=== PATIENT | female | born 1970 | race Caucasian/White ===

== ENCOUNTER → 2017-12-24 14:50 | Outpatient (CLI) | payer OTHER, SELFPAY ==
--- NOTE | 2017-12-24 14:53 | BI_ITS ---
MAMMOGRAPHY - BILATERAL SCREENING REASON FOR EXAM: Female, 47 years old. Routine annual screening examination. PERTINENT HISTORY: Non-contributory. TECHNIQUE: Digital bilateral breast zay (3D mammographic acquisition) in the CC and MLO projections. 2-D mediolateral oblique (MLO) and craniocaudad (CC) views of both breasts were obtained. CAD: Full Field Digital Mammography with Computer Added Detection was performed. COMPARISON: Comparison is made with prior ocular examination dated December 18, 2016 FINDINGS: Breast Composition: The breasts are heterogeneously dense, which may obscure small masses. There are no dominant masses or suspicious calcifications. A tissue clip marker is seen in the deep slightly inferior portion of the left breast. No other significant abnormalities are identified. There has been no significant change since the prior study. BI/SCREENING MAMM (CAD), BILAT IMPRESSION: Stable bilateral screening mammogram. Yearly follow-up mammogram recommended. (A) ASSESSMENT CATEGORY: BIRADS Category 2: Benign. A letter regarding these results will be sent to the patient by the facility within 30 days. Approximately 10% of breast cancers are not detected by mammography. A normal mammogram should not delay biopsy of a clinically suspicious abnormality. [id number] Electronically Signed: Baldev Bianchi MD at 15:35 EDT Tel [phone], Service support ,
== END ==
PROVIDERS: Family Provider Family Medicine; PCP Family Medicine; Visit Provider Family Medicine
DX: Z12.31 Encounter for screening mammogram for malignant neoplasm of breast (principal)
CPT/HCPCS: 77063; 77067

== ENCOUNTER → 2017-12-28 08:25 | Outpatient (CLI) | payer OTHER, SELFPAY ==
--- OUTSIDE RECORDS SUMMARY | 2017-12-29 10:01 | XMS RPT_ITS ---
:1970 Author Organization OHIP Care Team Providers Name Role Phone DOCTOR, OUT OF TOWN Attending Unavailable Nadege Gray Primary Care [facility] Employee Attending Unavailable DOCTOR, OUT OF TOWN Attending Unavailable Beba Sidhu Attending Unavailable Beba Sidhu Referring Unavailable Beba Sidhu Primary Care Unavailable Mikala Arboleda Attending Unavailable Beba Sidhu Referring Unavailable Mikala Arboleda Attending Unavailable Mikala Arboleda Referring Unavailable PROBLEMS PROBLEMS DATE TYPE CONDITION / CODE ATTENDING STATUS SOURCE 12/29/2017 Unknown Z12.4 - Mikala Arboleda Active [place] Encounter for Community screening for Hospital malignant Repository neoplasm of cervix / Z12.4(ICD-10) 12/24/2017 Unknown Z12.31 - Beba Sidhu Active [place] Encounter for Community screening Hospital mammogram for Repository malignant neoplasm of breast / Z12.31(ICD-10) PROCEDURES PROCEDURES No Procedure Records FoundRESULTS RESULTS 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 [place] [address] [phone] VISITDate of Service: 12/28/17MR#: [id number] Acct: [id number]: CHESTERLAKISHATOMÁS LONDONO Jaky Rep #: [id number]: 1970 Provider: VALDEZ Whaley/Sex: 47/F 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 annual examIs patient in pain?: NoAllergiesNo Known Allergies Allergy (Unverified 12/28/17 08:19)Medicationsdesogestrel-e.estradiol 0.15 mg-0.02 mg(21)/e.estrad 0.01 mg(5 ) tablet 1 tab PO .COMPLEX #84tab 12/28/17 [Rx Confirmed 12/28/17]Is last menstrual period known: NoPatient : NoBreastfeeding: NoPFSHSurgical HistoryHistory of (Acute)Family HistoryFather Myocardial infarctionSocial Historyadopted: Nocurrent occupational status: employedcurrent occupation: [employer] [address] [employer]current occupational exposures/hazards: NoSmoking Status: Never smokersecond hand exposure: Noalcohol intake: current alcohol intake frequency: holidays/ special occasions onlysubstance use type: does not usewhat type of physical activity do you participate in: walkingfrequency: 3-4 times per weekseatbelt use: alwaysdo you feel safe at home: Yesadditional social history: Spouse-GregPregancy HistoryGravida 1 Elective abortionsHx Para 1 Spontaneous abortionsPast PregnanciesDel. DatName GA/WeeksOutcome [facility]Infant GLabor LgAnesthesDel LocaProviderFOBe en wa tnUnknowcarole MadysonDelivery Date: On 12/28/17 @ 09:00 Manju Darling Born in 1998HPIEncounter for routine gynecological examination:Details: TOMÁS COLEMAN is a 47 year old who presents for annual exam. No concerns.Continuous cycling with OCP-wishes to continueLast PAP: unsureHistory of abnormal PAP: noLast mammogram: History of abnormal mammogram: negative biopsyROSConstConstitutional: Denies fatigue, weight gain or weight lossCardioCard: Denies chest painRespResp: Denies cough or shortness of breath with activityGIGI: Denies abdominal pain, constipation, change in stools, vomiting or bloatingGUGU: Reports as per HPI;denies urinary frequency, pelvic pain, urinary urgency, vaginal discharge, vaginal itching,urinary incontinence or difficulty urinatingExamConstGeneral: cooperative, healthy appearing, no acute distress, well developedOrientation: alert, oriented to person, oriented to placeHENMTHead: normal to inspectionNeckNeck: normal visual inspectionThyroid: thyroid normalLymphatic: no lymphadenopathy notedChestBreast inspection: normal inspection of the breasts, normal inspection of the axillaeBreast palpation: normal palpation of the breasts, normal palpation of the axillae, no axillarylymphadenopathyRespEffort AND Inspection: normal respiratory effortGIPalpation: soft, nontender, no massesRectal Exam: mass, deferredGUExternal Female Exam: normal external appearance, normal appearance of the urethraUrethra: normal appearance of the urethra, normal palpationSpeculum Exam - Vagina: normal appearance of the vagina, normal vaginal dischargeSpeculum Exam - Cervix: normal appearance of the cervix, other (pap collected)Bimanual Exam- Vagina AND Uterus: normal bimanual exam, uterine size normal, uterine shapenormal, uterus non-tenderBimanual Exam- Adnexa, other: normal adnexae, no adnexal masses, adnexae non-tender, pelvicsupport normalPelvic Support: normalNeuroGeneral: alert, oriented d6InriyBtnsqx: normal affectAssessment AND Plan1. Encounter for gynecological examination without abnormal finding Z01.419PlanCompleted breast and pelvic examReviewed diet and exercisePap thin prep pap with HPVMammogram recentContraception OCP continuous cyclingRTO 1 year, prn with Marissa Arboleda CNPPlan DetailOther OrdersOrders:Other MedicationsNew:CodingLevel of Care CodeOff vis,est,prev 40-64yrsDiagnosesEncounter for gynecological examination without abnormal finding Z01.419Gynecological examination findings: abnormal findings XYQXSX27/02/18 0924 <Electronically signed by Mikala Arboleda UX INTERACTION DESIGNER-C>Date Mikala Arboleda UX INTERACTION DESIGNER-CCosigner Signature: Date (if applicable)CC: SCREENING MAMM (CAD), Observed: 12/24/2017 Status: F Source: [facility] 2:53 PM [facility] REPOSITORY [facility]Im[facility] [id number] [place], [place] [address]XMZLLMIKZ MAMM (CAD), BILATMR#: [id number] Acct: [id number]: TOMÁS KELLEY Rep #: [id number]: 1970 F 47 From: Baldev Bianchi MDPCP: Beba Sidhu MD Status: REG CLIStudy: SCREENING MAMM (CAD) , BIL Date of Exam: 12/24/17Exam# [id number] Ordering Dr: Beba Sidhu MDMAMMOGRAPHY - BILATERAL SCREENINGREASON FOR EXAM: Female, 47 years old. Routine annual screeningexamination.PERTINENT HISTORY: Non-contributory.TECHNIQUE: Digital bilateral breast zay (3D mammographic acquisition) inthe CC and MLO projections. 2-D mediolateral oblique (MLO) and craniocaudad(CC) views of both breasts were obtained. CAD: Full Field DigitalMammography with Computer Added Detection was performed.COMPARISON: Comparison is made with prior ocular examination dated 2016 FINDINGS:Breast Composition: The breasts are heterogeneously dense, which mayobscure small masses.There are no dominant masses or suspicious calcifications. A tissue clipmarker is seen in the deep slightly inferior portion of the left breast.No other significant abnormalities are identified. There has been nosignificant change since the prior study. ORDER #: [id number] BI/SCREENING MAMM ( CAD), BILATIMPRESSION:Stable bilateral screening mammogram. Yearly follow-up mammogramrecommended. (A) ASSESSMENT CATEGORY:BIRADS Category 2: Benign. A letter regarding these results will be sentto the patient by the facility within 30 days.Approximately 10% of breast cancers are not detected by mammography. Anormal mammogram should not delay biopsy of a clinically suspiciousabnormality.[id number] Signed:Baldev Bianchi MD at 15:35 [facility] [phone], Service support , HT: Beba Sidhu MD Drawing In Machine Tender:Signed PROGRESS Observed: 09/11/2017 Status: COMPLETED Source: [place] 8:27 AM [facility] REPOSITORY HNO ID: [id number]: Donnie Clarke) Solitario: (none)Author Type: Nurse PractitionerType: Progress NotesFiled: 09/11/2017 8:51 AMNote Text:SubjectiveHPIHPI Tomás Kelley is a 47 year old female who presents today for CC ofcough, headache, sinus pressure. This started over 5 days. Has tried otcmedications. Symptoms have remained unchanged. Risk factors sickexposures at home. Denies possibility of being . nonsmoker.Patient presents with: cough, runny nose, CONCEPCION and sinus pressure: x 5 daysPAST MEDICAL HISTORYDiagnosis Date- Irritable bowel syndrome 08/11/2006- Palpitations 11/19/2006- PMH - PAST MEDICAL HISTORY OF 03/2006 irregular heart beat, on Atenolol for this- Vertigo, benign positional June 2014PAST SURGICAL HISTORYProcedure Laterality Date- BREAST BIOPSY W/STEREOTACTIC GUIDANCE Left 01/05/2016- DELIVERY ONLY 02-24-1999 C- section, low cervical- LASIK Bilateral 2006- PAST SURGICAL HISTORY OF WISDOM TEETH EXTRACTIONALLERGIES Review of patient's allergies indicates no known allergies.MEDICATIONSDesogestrel-Ethinyl Estradiol (MIRCETTE, 28,) 0.15-0.02 mgx21 /0.01 mg x 5per tablet Take 1 tablet by mouth daily to take active pills continuouslynortriptyline (PAMELOR) 10 mg capsule Take 1-3 capsules by mouth daily atbedtime.atenolol (TENORMIN) 25 mg tablet Take 1 tablet by mouth as needed.FAMILY HISTORYProblem Relation Age of Onset- Heart Father [place]- IN 30'S- Stroke Maternal Grandmother- Diabetes Maternal Grandmother- Hypertension Maternal Aunt- Cancer Maternal Uncle LungSocial HistorySubstance Use Topics- Smoking status: Never Smoker- Smokeless tobacco: Never Used- Alcohol use Yes Comment: SociallyReview of SystemsConstitutional: Negative for chills, fever and weight loss.HENT: Positive for congestion. Negative for ear pain, nosebleeds and sorethroat.Respiratory: Positive for cough. Negative for shortness of breath andwheezing.Musculoskeletal: Negative for neck pain.Skin: Negative for itching and rash.ObjectiveBlood pressure 108/80, pulse 88, temperature 36.8 ?C (98.3 ?F),temperature source Tympanic, resp. rate 18, weight 59.1 kg (130 lb 6.4oz), SpO2 98 %.Physical ExamConstitutional: She is oriented to person, place, and time andwell-developed, well-nourished, and in no distress. Non-toxic appearance.She does not have a sickly appearance. No distress.HENT: Head: Normocephalic and atraumatic.Right Ear: Hearing, tympanic membrane, external ear and ear canal normal.Left Ear: Hearing, tympanic membrane, external ear and ear canal normal.Nose: Nose normal.Mouth/Throat: Uvula is midline, oropharynx is clear and moist and mucousmembranes are normal.Eyes: Conjunctivae and lids are normal. Pupils are equal, round, andreactive to light. Right eye exhibits no discharge. Left eye exhibits nodischarge. No scleral icterus.Neck: Trachea normal and normal range of motion. Neck supple.Cardiovascular: Normal rate, regular rhythm and normal heart sounds.Pulmonary/Chest: Effort normal and breath sounds normal.Lymphadenopathy : She has no cervical adenopathy.Neurological: She is alert and oriented to person, place, and time.Skin: No rash noted. She is not diaphoretic. ASSESSMENT/PLAN:1. Sinobronchitis - ICD9: 473.9, 490, ICD10: J32.9, J40- watch/wait for 2-3 days, if symptoms no better/worse fill/takeantibiotic- Supportive care with plenty of fluids, rest, and analgesia prn.- Follow up in 3-5 days if symptoms persist or worsen.- AMOXICILLIN 875 MG-POTASSIUM CLAVULANATE 125 MG TABLET- BENZONATATE 100 MG CAPSULEPrescription instructions reviewed with patient as applicable. Patientadvised if symptoms do not improve or if symptoms worsen sooner, tocontact the office for further evaluation by their primary care physician. Potential red flag symptoms discussed with the patient. Reviewedappropriate action plan to take if red flag symptoms occur. Patientagreeable to treatment plan.Donnie Clrak CNP CNOV Observed: 09/11/2017 Status: COMPLETED Source: [place] 8:15 AM [facility] REPOSITORY Office Visit (WSTR) ---------TOMÁS KELLEY ([id number]) 1970 FDate Time Provider Department09/11/17 8:15 AM DONNIE CLARK) WSTR During your visit today, we recorded the following information about you: Temperature Pulse Respiration Blood pressure 98.3 degrees 88/minute 18/minute 108/80 Weight 59.1 kgJonathan Eduardo, WINDOW TREATMENT INSTALLER 09/11/2017 8:51 AM SignedSubjectiveHPIHPI Tomás Kelley is a 47 year old female who presents today for CC of cough,headache, sinus pressure. This started over 5 days. Has tried otcmedications. Symptoms have remained unchanged. Risk factors sick exposures athome. Denies possibility of being . nonsmoker.Patient presents with:cough, runny nose, CONCEPCION and sinus pressure: x 5 daysPAST MEDICAL HISTORYDiagnosis Date- Irritable bowel syndrome 08/11/2006- Palpitations 11/19/2006- PMH - PAST MEDICAL HISTORY OF 03/2006 irregular heart beat, on Atenolol for this- Vertigo, benign positional June 2014PAST SURGICAL HISTORYProcedure Laterality Date- BREAST BIOPSY W/STEREOTACTIC GUIDANCE Left 01/05/2016- DELIVERY ONLY 02-25-2000 C- section, low cervical- LASIK Bilateral 2006- PAST SURGICAL HISTORY OF WISDOM TEETH EXTRACTIONALLERGIES Review of patient's allergies indicates no known allergies.MEDICATIONSDesogestrel-Ethinyl Estradiol (MIRCETTE, 28,) 0.15-0.02 mgx21 /0.01 mg x 5 pertablet Take 1 tablet by mouth daily to take active pills continuouslynortriptyline (PAMELOR) 10 mg capsule Take 1-3 capsules by mouth daily atbedtime.atenolol (TENORMIN) 25 mg tablet Take 1 tablet by mouth as needed.FAMILY HISTORYProblem Relation Age of Onset- Heart Father [place]- IN 30'S- Stroke Maternal Grandmother- Diabetes Maternal Grandmother- Hypertension Maternal Aunt- Cancer Maternal Uncle LungSocial HistorySubstance Use Topics- Smoking status: Never Smoker- Smokeless tobacco: Never Used- Alcohol use Yes Comment: SociallyReview of SystemsConstitutional: Negative for chills, fever and weight loss.HENT: Positive for congestion. Negative for ear pain, nosebleeds and sorethroat.Respiratory: Positive for cough. Negative for shortness of breath and wheezing.Musculoskeletal: Negative for neck pain.Skin: Negative for itching and rash.ObjectiveBlood pressure 108/80, pulse 88, temperature 36.8 ?C (98.3 ?F), temperaturesource Tympanic, resp. rate 18, weight 59.1 kg (130 lb 6.4 oz), SpO2 98 %.Physical ExamConstitutional: She is oriented to person, place, and time and well-developed,well-nourished, and in no distress. Non-toxic appearance. She does not have asickly appearance. No distress.HENT:Head: Normocephalic and atraumatic.Right Ear: Hearing, tympanic membrane, external ear and ear canal normal.Left Ear: Hearing, tympanic membrane, external ear and ear canal normal.Nose: Nose normal.Mouth/ Throat: Uvula is midline, oropharynx is clear and moist and mucousmembranes are normal.Eyes: Conjunctivae and lids are normal. Pupils are equal, round, and reactiveto light. Right eye exhibits no discharge. Left eye exhibits no discharge. Noscleral icterus.Neck: Trachea normal and normal range of motion. Neck supple.Cardiovascular: Normal rate, regular rhythm and normal heart sounds.Pulmonary/Chest: Effort normal and breath sounds normal.Lymphadenopathy: She has no cervical adenopathy.Neurological: She is alert and oriented to person, place, and time.Skin: No rash noted. She is not diaphoretic. ASSESSMENT/PLAN:1. Sinobronchitis - ICD9: 473.9, 490, ICD10: J32.9, J40- watch/ wait for 2-3 days, if symptoms no better/worse fill/take antibiotic- Supportive care with plenty of fluids, rest, and analgesia prn.- Follow up in 3-5 days if symptoms persist or worsen.- AMOXICILLIN 875 MG-POTASSIUM CLAVULANATE 125 MG TABLET- BENZONATATE 100 MG CAPSULEPrescription instructions reviewed with patient as applicable. Patient advisedif symptoms do not improve or if symptoms worsen sooner, to contact the officefor further evaluation by their primary care physician. Potential red flagsymptoms discussed with the patient. Reviewed appropriate action plan to takeif red flag symptoms occur. Patient agreeable to treatment plan.Dorie Farnsworth CNP 09/11/2017 8: 37 AM SignedACUTE BRONCHITIS:You have acute bronchitis. This means the airway passages in your lungs areinflamed. Bronchitis may be caused by viruses or bacteria. Inhaling cigarettesmoke will always make it worse. Exposure to irritating chemicals or secondhand smoke as well as allergies can contribute to bronchitis. Repeat episodesof bronchitis may cause lifelong lung problems.Acute bronchitis is usually treated with rest, fluids, cough medicine, andpossibly antibiotics or inhaled medicine to open up the small airways. It isvery important that you avoid smoke and drink increased amounts of fluids. Acool air vaporizer can help thin bronchial secretions. This makes it easier tocough and clear your chest. If you are a cigarette smoker, consider usingnicotine gum or skin patches to help you withdraw.Recovery from bronchitis is often slow, but you should start feeling betterafter 2-3 days of treatment. Please call your doctor or return here if youhave any of the following symptoms: - Increased fever, chills, or chest pain. - Severe shortness of breath or bloody sputum. - Do not improve after 3 days of proper treatment.Referring Provider: SELF [200]Allergies As of Date: 09/11/2017(No Known Allergies)Date Reviewed: 09/11/2017Reviewed by: Donnie Clark - Fully AssessedReason for Visit: cough, runny nose, CONCEPCION and sinus pressure [Other] Cmt: x 5 daysPrimary Visit Diagnosis: Sinobronchitis [J32.9, J40]Order(s):amoxicillin-clavulanic acid (AUGMENTIN) 875-125 mg per tabletTake 1 tablet by mouth twice daily for 10 days.Disp: 20 tabletRfl: 0 benzonatate ( TESSALON PERLES) 100 mg capsuleTake 2 capsules by mouth three times daily as needed for Cough.Disp: 30 capsuleRfl: 0Prescriptions as of 09/11/2017 Sig: DESOGESTREL-E.ESTRADIOL 0.15 * Take 1 tablet by mouth daily * AMOXICILLIN 875 MG-POTASSIUM * Take 1 tablet by mouth twice * BENZONATATE 100 MG CAPSULE Take 2 capsules by mouth thre* NORTRIPTYLINE 10 MG CAPSULE Take 1- 3 capsules by mouth da* ATENOLOL 25 MG TABLET Take 1 tablet by mouth as nee*Medication notes this encounter NORTRIPTYLINE 10 MG CAPSULE >> Becky Jorge LPN 09/11/2017 8:15 AM >> BECKY JORGE LPN ThuSep 11, 2017 8:15 AM Not Taking ATENOLOL 25 MG TABLET > > Becky Jorge LPN 09/11/2017 8:15 AM >> BECKY JORGE ALLAN ThuSep 11, 2017 8:15 AM Not TakingProblem List As Of Date 09/11/2017 Noted Resolved 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 Cervicalgia [M54.2] INVALID FOR*12/11/2014 PALPITATIONS [R00.2] INVALID FOR* More... Recurrent Low Back Pain [M54.5] INVALID FOR* Routine medical exam [Z00.00] INVALID FOR*01/07/2012 More... Benign paroxysmal positional vertigo [H81.10] INVALID FOR* Other instructions from your clinician: ACUTE BRONCHITIS: You have acute bronchitis. This means the airway passages in your lungs are inflamed. Bronchitis may be caused by viruses or bacteria. Inhaling cigarette smoke will always make it worse. Exposure to irritating chemicals or second hand smoke as well as allergies can contribute to bronchitis. Repeat episodes of bronchitis may cause lifelong lung problems. Acute bronchitis is usually treated with rest, fluids, cough medicine, and possibly antibiotics or inhaled medicine to open up the small airways. It is very important that you avoid smoke and drink increased amounts of fluids. A cool air vaporizer can help thin bronchial secretions. This makes it easier to cough and clear your chest. If you are a cigarette smoker, consider using nicotine gum or skin patches to help you withdraw. Recovery from bronchitis is often slow , but you should start feeling better after 2-3 days of treatment. Please call your doctor or return here if you have any of the following symptoms: - Increased fever, chills, or chest pain. - Severe shortness of breath or bloody sputum. - Do not improve after 3 days of proper treatment.Prescriptions ordered this encounter Disp Refills Start End AMOXICILLIN 875 MG- POTASSIUM CLAVULA* 20 t* 0 09/11/2017 09/21/2017 Class: Print RX Route: ORAL Sig: Take 1 tablet by mouth twice daily for 10 days. BENZONATATE 100 MG CAPSULE 30 c* 0 09/11/2017 Route: ORAL Sig: Take 2 capsules by mouth three times daily as needed for Cough. Status:Closed by DONNIE CLARK CNP on 09/11/17 LIPID PROFILE Collected: 01/01/2017 Status: F Source: [place] 7:45 AM [facility] REPOSITORY TYPE CODE TESTS RESULT OUT OF RANGE REFERENCE UNITS LAB L501.4900 High 200 mg/dL CHOL 206 Result Comment: <200 mg /dL Desirable 200-240 mg/dL Borderline >240 mg/dL High Risk LAB L501.5000 Normal mg/dL TRIG 88 Result Comment: The drugs N-Acetylcysteine and Metamizole may falsely deressthis assay.Serum Triglycerides Reference Interval Normal <150 mg/dL Borderline high 150 - 199 mg/dL High 200 - 499 mg/dL Very High > or = 500 mg/dL LAB L501.6400 Normal mg/dL HDL 72 Result Comment: The drugs N-Acetylcysteine and Metamizole may falsely deressthis assay. Reference Range HDL <40 mg /dL Low HDL Cholesterol HDL >or= 60 mg/dL High HDL Cholesterol LAB L501.6500 Normal 0-130 mg/dL LDL 116 LAB L501.6600 Normal 5-40 mg/dL VLDL 18 Performed By: #### L500.4100, L501.0100 ####[facility] [address] [place], [place], [address] GLUCOSE Collected: 01/01/2017 Status: F Source: [place] 7:45 [facility] REPOSITORY TYPE CODE TESTS RESULT OUT OF RANGE REFERENCE UNITS LAB L501.0100 Normal 70-110 mg/dL GLU 78 Performed By: #### L500.4100, L501.0100 ####[facility] [address] [place], [address] ALLERGIES ALLERGIES DATE TYPE / CODE NAME / CODE REACTION SEVERITY SOURCE 12/28/2017 Drug No Known Unknown [facility] Allergy/416 Allergies/A89308 Hospital 247267(SNOM 0388(RXNORM) Repository ED CT) Drug NO KNOWN [facility] Class/97058 ALLERGIES [address] [place] 1003(SNOMED Repository CT) ENCOUNTERS ENCOUNTERS ADMIT/DISCHARGE ACCOUNT ADMITTING ENCOUNTER LOCATION SOURCE NUMBER CLASS 12/28/[id number] [facility] ing:LABSPEC Repository 12/28/2017/12/29/19 [id number] Ambulatory BMSBuilding:[address] Hospital Repository 12/24/[id number] [facility] ing:OPBI Repository 09/11/2017/09/12/19 [id number] Ambulatory [address] Repository 06/01/[id number] [facility] ing:MASS Repository 04/06/2017 [id number] [facility] ing:MASS Repository 01/01/[id number] [facility] ing:OLS[facility] Repository PAYERS PAYERS ENCOUNTER GUARANTOR PAYER SUBSCRIBER SOURCE 12/28/2017 TOMÁS Lomas Primary TOMÁS A [place][id number] Insurance:AETNAPolicy [place] [address] [address] Number: : [id number] [id number] Repository [address]Evq: (330) Date:7941-90-65LS [phone] () [address], [place] [address]UD: 12/28/2017 Secondary NOT GIVENUNK [place] Insurance:SELF PAY [facility] Number: Effective Repository Date:2017-12-28 12/28/2017 TOMÁS Lomas. Primary TOMÁS A. [place]-[id number] Insurance:AETNAPolfrany [place] [address] [address] Number: : [id number], [place] [id number] Repository [address]Sas: (330) Date:3155-21-63LA [phone] () [place], [place] [address]HV: 12/28/2017 Secondary NOT GIVENUNK [place] Insurance:SELF PAY [facility] Number: Effective Repository Date:2017-08-31 12/24/2017 TOMÁS A Primary TOMÁS A [place] [id number] STAHR Insurance:AETNAPolicy BOLEKDOB: [place] Number: [id number] Hospital [address]Gxf: ([phone]) [id number] Repository [phone] () Date:[id number] [address] SMUA HERBERT [address]MC: 12/24/2017 Secondary NOT GIVENUNK [place] Insurance:SELF PAY [facility] Number: Effective Repository Date:2017-12-08 06/01/2017 Tomás Primary NOT GIVENUNK [place] [id number] Insurance:SELF PAY [place] Number: Effective Repository [id number]: [phone]) Date:2016-09-26 [phone] ()
[2018-01-04 10:14] LABS: HPV APTIMA, High Risk Negative (Negative)
== END ==
PROVIDERS: Visit Provider Nurse Practitioner Women's Health
DX: R25.2 Cramp and spasm (principal)
CPT/HCPCS: 88175; G0145

== ENCOUNTER → 2018-12-31 08:15 | Outpatient (CLI) | payer OTHER, SELFPAY ==
[2017-12-28 08:16] VITALS: BMI 22.8
--- NOTE | 2018-12-31 08:19 | BI_ITS ---
MAMMOGRAPHY - BILATERAL SCREENING REASON FOR EXAM: Female, 48 years old. Routine annual screening examination. PERTINENT HISTORY: Non-contributory. Remote left stereotactic breast biopsy. TECHNIQUE: Digital bilateral breast ivonne (3D mammographic acquisition) in the CC and MLO projections. 2-D mediolateral oblique (MLO) and craniocaudad (CC) views of both breasts were obtained. CAD: Full Field Digital Mammography with Computer Added Detection was performed. COMPARISON: Comparison is made with prior study dated December 24, 2017 and December 18, 2016. FINDINGS: Breast Composition: The breasts are heterogeneously dense, which may obscure small masses. There are no dominant masses or suspicious calcifications. A tissue clip marker is once again seen in the deep slightly inferior central portion of the left breast. No other significant abnormalities are identified. There has been no significant change since the prior study. BI/SCREEN MAMM (CAD) W/IVONNE BILAT IMPRESSION: Stable bilateral screening mammogram. Yearly follow-up mammogram recommended. (A) ASSESSMENT CATEGORY: BIRADS Category 2: Benign. A letter regarding these results will be sent to the patient by the facility within 30 days. Approximately 10% of breast cancers are not detected by mammography. A normal mammogram should not delay biopsy of a clinically suspicious abnormality. [id number] Electronically Signed: Baldev Bianchi, at 9:56 EDT , Service support ,
== END ==
PROVIDERS: Family Provider Family Medicine; PCP Family Medicine; Referring Provider Nurse Practitioner Women's Health; Visit Provider Nurse Practitioner Women's Health
DX: Z12.31 Encounter for screening mammogram for malignant neoplasm of breast (principal)
CPT/HCPCS: 77063; 77067

== ENCOUNTER → 2019-01-04 14:05 | Outpatient (CLI) | payer OTHER, SELFPAY ==
[2018-12-31 08:53] VITALS: BMI 22.8
--- NOTE | 2019-01-04 14:07 | US_ITS ---
STUDY: ULTRASOUND OF THE FEMALE PELVIS - COMPLETE REASON FOR EXAM: Female, 48 years old. Mass TECHNIQUE: Transabdominal and transvaginal ultrasound images of the pelvis were obtained. TECHNICAL QUALITY: Adequate. COMPARISON: None. FINDINGS: The uterus measures 6.5 x 4.4 x 3.4 cm. Normal uterine cervix. The endometrium measures 7 mm in thickness. 3 mm echogenic focus is noted at the posterior aspect of the endometrium, possibly blood products, calcification, or debris, and not optimally characterized. There is no demonstrated myometrial mass. The right ovary is not visualized. The left ovary measures 2.4 x 1.9 x 1.5 cm. There is no left ovarian cyst or ovarian mass. There is no visualized left adnexal mass or complex lesion. There is normal arterial and normal venous vascularity. There is mild fluid in the cul-de-sac. US/Transvaginal Non- IMPRESSION: No acute pelvic pathology identified. 3 mm echogenic focus at the posterior aspect of the endometrium, possibly blood products, calcification, or debris, and not optimally characterized. Correlate clinically. Electronically Signed: Naveed Mills, at 20:18 EDT Tel , Service support ,
--- NOTE | 2019-01-04 14:07 | US_ITS ---
STUDY: ULTRASOUND OF THE FEMALE PELVIS - COMPLETE REASON FOR EXAM: Female, 48 years old. Mass TECHNIQUE: Transabdominal and transvaginal ultrasound images of the pelvis were obtained. TECHNICAL QUALITY: Adequate. COMPARISON: None. FINDINGS: The uterus measures 6.5 x 4.4 x 3.4 cm. Normal uterine cervix. The endometrium measures 7 mm in thickness. 3 mm echogenic focus is noted at the posterior aspect of the endometrium, possibly blood products, calcification, or debris, and not optimally characterized. There is no demonstrated myometrial mass. The right ovary is not visualized. The left ovary measures 2.4 x 1.9 x 1.5 cm. There is no left ovarian cyst or ovarian mass. There is no visualized left adnexal mass or complex lesion. There is normal arterial and normal venous vascularity. There is mild fluid in the cul-de-sac. US/Pelvic (Non ) IMPRESSION: No acute pelvic pathology identified. 3 mm echogenic focus at the posterior aspect of the endometrium, possibly blood products, calcification, or debris, and not optimally characterized. Correlate clinically. Electronically Signed: Naveed Mills, at 20:18 EDT Tel , Service support ,
== END ==
PROVIDERS: Family Provider Family Medicine; PCP Family Medicine; Referring Provider Nurse Practitioner Women's Health; Visit Provider Nurse Practitioner Women's Health
DX: R19.00 Intra-abdominal and pelvic swelling, mass and lump, unspecified site (principal)
CPT/HCPCS: 76830; 76856; 93976

== ENCOUNTER → 2019-08-11 16:19 | Outpatient (CLI) | payer OTHER, SELFPAY ==
[2019-01-18 11:53] VITALS: BMI 22.1
[2019-08-11 17:25] LABS: Absolute Neutrophil Count 3.4 X10^3/uL (2.0-7.7); Basophil# 0.01 X10^3/uL; Basophil% 0.2 % (0-1); Eosinophil# 0.07 X10^3/uL; Eosinophils% 1.1 % (0-5); Hematocrit 39.9 % (37-47); Mean Corp Hgb Conc 32.6 g/dL (32-36); Mean Corpuscular Hgb 29.1 pg (27.0-32.0); Mean Corpuscular Volume 89.5 fL (81-99); Mean Platelet Vol. 10.8 fl (6.2-12.0); Monocyte# 0.36 X10^3/uL; Monocyte% 5.5 % (0-10); NRBC Flagged by Analyzer 0 % (0-5); Neutrophil # 3.44 X10^3/uL (2.7-7.7); Platelet Count 235 K/mm3 (150-450); RBC Distribution Width CV 12.5 % (11.6-14.6); RBC Distribution Width SD 40.9 fl (35.1-43.9); Red Blood Count 4.46 M/mm3 (4.2-5.4); White Blood Count 6.6 K/mm3 (4.4-11.0)
[2019-08-11 18:03] LABS: Thyroid Stim Hormone (TSH) 2.27 uIU/mL (0.358-3.74)
== END ==
PROVIDERS: PCP Family Medicine; Visit Provider Family Medicine
DX: R53.83 Other fatigue (principal)
CPT/HCPCS: 36415; 84443; 85025

== ENCOUNTER → 2020-01-12 08:13 | Outpatient (CLI) | payer OTHER, SELFPAY ==
[2019-01-18 11:53] VITALS: BMI 22.1
--- NOTE | 2020-01-12 08:13 | BI_ITS ---
MAMMOGRAPHY - BILATERAL SCREENING REASON FOR EXAM: Female, 49 years old. Routine annual screening examination. PERTINENT HISTORY: Non-contributory. TECHNIQUE: Digital bilateral breast ivonne (3D mammographic acquisition) in the CC and MLO projections. 2-D mediolateral oblique (MLO) and craniocaudad (CC) views of both breasts were obtained. CAD: Full Field Digital Mammography with Computer Added Detection was performed. COMPARISON: Comparison is made with prior study December 31, 2018 and December 24, 2017. FINDINGS: Breast Composition: The breasts are heterogeneously dense, which may obscure small masses. There are no dominant masses or suspicious calcifications. A tissue clip marker is once again seen in the deep slightly inferior central portion of the left breast. No other significant abnormalities are identified. There has been no significant change since the prior study. BI/SCREEN MAMM (CAD) W/IVONNE BILAT IMPRESSION: Stable bilateral screening mammogram. Yearly follow-up mammogram recommended. (A) ASSESSMENT CATEGORY: BIRADS Category 2: Benign. A letter regarding these results will be sent to the patient by the facility within 30 days. Approximately 10% of breast cancers are not detected by mammography. A normal mammogram should not delay biopsy of a clinically suspicious abnormality. [id number] Electronically Signed: Baldev Bianchi, at 10:02 EDT , Service support ,
== END ==
LOC: OPBI 08:13
PROVIDERS: PCP Family Medicine; Referring Provider Nurse Practitioner Women's Health; Visit Provider Nurse Practitioner Women's Health
DX: Z12.31 Encounter for screening mammogram for malignant neoplasm of breast (principal)
CPT/HCPCS: 77063; 77067

== ENCOUNTER → 2021-01-17 08:13 | Outpatient (CLI) | payer OTHER, SELFPAY ==
[2020-01-12 09:05] VITALS: BMI 22.1
--- NOTE | 2021-01-17 08:14 | BI_ITS ---
MAMMOGRAPHY - BILATERAL SCREENING REASON FOR EXAM: Female, 50 years old. Routine annual screening examination. PERTINENT HISTORY: Non-contributory. Prior left stereotactic breast biopsy. TECHNIQUE: Digital bilateral breast ivonne (3D mammographic acquisition) in the CC and MLO projections. 2-D mediolateral oblique (MLO) and craniocaudad (CC) views of both breasts were obtained. CAD: Full Field Digital Mammography with Computer Added Detection was performed. COMPARISON: Comparison is made with prior study dated 01/12/2020 and 12/31/2018. FINDINGS: Breast Composition: The breasts are heterogeneously dense, which may obscure small masses. There are no dominant masses or suspicious calcifications. A tissue clip marker is once again seen in the deep slightly inferior central aspect of the left breast. No other significant abnormalities are identified. There has been no significant change since the prior study. BI/SCRN MAMM (CAD)W/IVONNE BILAT IMPRESSION: Stable bilateral screening mammogram. Yearly follow-up mammogram recommended. (A) ASSESSMENT CATEGORY: BIRADS Category 2: Benign. A letter regarding these results will be sent to the patient by the facility within 30 days. Approximately 10% of breast cancers are not detected by mammography. A normal mammogram should not delay biopsy of a clinically suspicious abnormality. [id number] Electronically Signed: Baldev Bianchi MD at 9:43 EDT , Service support ,
== END ==
PROVIDERS: PCP Family Medicine; Referring Provider Nurse Practitioner Women's Health; Visit Provider Nurse Practitioner Women's Health
DX: Z12.31 Encounter for screening mammogram for malignant neoplasm of breast (principal)
CPT/HCPCS: 77063; 77067

== ENCOUNTER 2021-12-06 05:49 | Day surgery (SDC) | payer OTHER, SELFPAY ==
[2021-12-06] VITALS (10 sets, daily range): BP systolic 80–120; BP diastolic 52–87; PULSE 72–87; RESP 16; TEMP 36.3–37.1; O2SAT 99–100; BMI 21.4
--- NOTE | 2021-12-06 06:03 | PCM.HP.STD ---
HPI - General HPI Narrative TOMÁS KELLEY, is a 51 F who presents for screening colonoscopy today. She enjoys good health. She has no particular concerns. No abdominal pain bright red blood per rectum or melena. She has had a previous colonoscopy but albeit 20 years ago. [facility] Medical History Benign positional vertigo Home Medications NK 12/03/21 [History Last Taken Unknown] Allergy/AdvReac Type Severity Reaction Status Date / Time No Known Allergies Allergy Verified 12/03/21 10:49 Family History Father Myocardial infarction Surgical History History of Social History adopted: No current occupational status: employed current occupation: [employer] current occupational exposures/hazards: No Smoking Status: Never smoker second hand exposure: No alcohol intake: current alcohol intake frequency: holidays/special occasions only substance use type: does not use what type of physical activity do you participate in: walking frequency: 3-4 times per week seatbelt use: always do you feel safe at home: Yes additional social history: Spouse-Anand ROS Constitutional Constitutional: Reports systems reviewed and no addt'l complaints, except as documented Cardiovascular Cardiovascular: Denies chest pain Respiratory/Chest Respiratory/Chest: Denies shortness of breath at rest Gastrointestinal Gastrointestinal: Denies abdominal pain, change in bowel habits, hematochezia or melena Physical Exam Const alert, oriented x3 and no apparent distress General Appearance: cooperative and comfortable Eyes General Eye: normal appearance of both eyes Neck General: normal visual inspection Chest inspection of chest normal Resp Effort and Inspection: able to speak in complete sentences and symmetric chest movement Auscultation: clear to auscultation bilaterally Cardio regular rate and regular rhythm GI soft to palpation, non-tender and non-distended Extremity no calf tenderness Neuro oriented x3 Psych thought process normal Assessment & Plan Assessment/Plan (1) Encounter for screening for malignant neoplasm of colon: PLAN: The patient presents for an open access today for screening colonoscopy with possible biopsy or polypectomy as indicated. She is aware of the technique, benefit, risk, alternatives. She has had an opportunity to ask and have questions answered. We will proceed as noted. Alessio Lance M.D., F.A.C.S.
[2021-12-06] MEDS: Lactated Ringers 1,000 ML 15 ML IV (06:30)
[2021-12-06 06:35] LABS: Internal QC Validated? YES +Cl - CLEAR BKGD
[2021-12-06 06:36] LABS: Pregnancy, Urine Negative Negative
[2021-12-06] MEDS: Midazolam 5 MG/ML Syringe (06:55)
--- NOTE | 2021-12-06 07:20 | OP.COLON_ITS ---
Patient Name: Joana Mariscal Procedure Date: 12/06/2021 6:58 AM Date of : 1970 Age: 51 Procedure: Colonoscopy Indications: Screening for colorectal malignant neoplasm Providers: Alessio Lance MD Referring MD: Beba Sidhu Medicines: Midazolam 3.5 mg IV, Meperidine 100 mg IV Patient Profile: Last Colonoscopy: more than 10 years ago. Complications: No immediate complications. Procedure: Pre-Anesthesia Assessment: - Prior to the procedure, a History and Physical was performed, and patient medications and allergies were reviewed. The patient's tolerance of previous anesthesia was also reviewed. The risks and benefits of the procedure and the sedation options and risks were discussed with the patient. All questions were answered, and informed consent was obtained. Prior Anticoagulants: The patient has taken no previous anticoagulant or antiplatelet agents. ASA Grade Assessment: II - A patient with mild systemic disease. After reviewing the risks and benefits, the patient was deemed in satisfactory condition to undergo the procedure. After I obtained informed consent, the scope was passed under direct vision. Throughout the procedure, the patient's blood pressure, pulse, and oxygen saturations were monitored continuously. The colonoscope was introduced through the anus and advanced to the cecum, identified by appendiceal orifice and ileocecal valve. The colonoscopy was performed without difficulty. The patient tolerated the procedure well. The quality of the bowel preparation was good. The ileocecal valve and the appendiceal orifice were photographed. Moderate Sedation: Moderate (conscious) sedation was personally administered by the endoscopist. The following parameters were monitored: oxygen saturation, heart rate, blood pressure, and response to care. Total physician intraservice time was 15 minutes. Scope In: 7:04:46 AM Scope Withdrawal Time 0 hours 7 minutes 22 seconds Scope Out: 7:17:03 AM Total Procedure Duration Time 0 hours 12 minutes 17 seconds Findings: The perianal and digital rectal examinations were normal. The colon (entire examined portion) appeared normal. Impression: - The entire examined colon is normal. - No specimens collected. Recommendation: - Discharge patient to home. - Resume previous diet. - Continue present medications. - Repeat colonoscopy in 10 years for screening purposes. Procedure Code(s): --- Professional --- 81092, Colonoscopy, flexible; diagnostic, including collection of specimen(s) by brushing or washing, when performed (separate procedure) 54529, 59, Moderate sedation services provided by the same physician or other qualified health manager progressive care performing the diagnostic or therapeutic service that the sedation supports, requiring the presence of an independent trained observer to assist in the monitoring of the patient's level of consciousness and physiological status; initial 15 minutes of intraservice time, patient age 5 years or older Diagnosis Code(s): --- Professional --- Z12.11, Encounter for screening for malignant neoplasm of colon CPT copyright 2017 [employer]. All rights reserved. The codes documented in this report are preliminary and upon electric blanket packer review may be revised to meet current compliance requirements. Alessio Lance MD 12/06/2021 7:20:18 AM This report has been signed electronically. Number of Addenda: 0 Note Initiated On: 12/06/2021 6:58 AM
--- NOTE | 2021-12-06 07:21 | OP.CCLET_ITS ---
12/06/2021 Beba Sidhu [facility] [address] [place] [address] Re : Colonoscopy procedure for Joana Mariscal Dear Dr. Sidhu This procedure was performed on Monday, December 06, 2021. My impressions and recommendations are as follows: Impressions : - The entire examined colon is normal. - No specimens collected. Recommendations : - Discharge patient to home. - Resume previous diet. - Continue present medications. - Repeat colonoscopy in 10 years for screening purposes. My findings are described in the full procedure note, which is enclosed. If I can be of further assistance, please feel free to contact me at Doctor phone number(s): Work: . Sincerely, Alessio Lance MD 12/06/2021 7:20:18 AM This report has been signed electronically.
== END 2021-12-06 07:58 | disposition home or self-care (01) ==
LOC: EN 05:49 → AC 05:51
PROVIDERS: PCP Family Medicine; Referring Provider Family Medicine; Visit Provider Surgery
PROC: 0DJD8ZZ Inspection of Lower Intestinal Tract, Via Natural or Artificial Opening Endoscopic (ICD-10-PCS; CPT 45378; principal; 2021-12-06 06:55)
DX: Z12.11 Encounter for screening for malignant neoplasm of colon (principal)
CPT/HCPCS: 45378; 81025; 99152; 99153; J7120

== ENCOUNTER → 2022-01-29 | Outpatient (CLI) | payer OTHER, SELFPAY ==
--- NOTE | 2022-01-29 08:12 | BI_ITS ---
MAMMOGRAPHY - BILATERAL SCREENING 3-D TOMOSYNTHESIS REASON FOR EXAM: Female, 51 years old. Screening for breast cancer. PERTINENT HISTORY: History of left stereotactic biopsy. TECHNIQUE: 2-D mammograms and 3-D Tomosynthesis of the breast (s) were performed. CAD was performed. COMPARISON: 01/12/2020 12/31/2018. FINDINGS: The breast composition is heterogeneously dense that can obscure small breast masses. Stable scattered benign calcifications and tissue clip marker in left breast. No dense spiculated masses or suspicious microcalcifications are identified. No architectural distortion is identified. There is no skin thickening or retraction. BI/SCRN MAMM (CAD)W/IVONNE BILAT IMPRESSION: No interval change and no mammographic signs of malignancy. Routine yearly mammograms recommended. ASSESSMENT CATEGORY: BIRADS Category 2: Benign. A letter regarding these results will be sent to the patient by the facility within 30 days. FOLLOW UP RECOMMENDATION: Yearly follow up mammogram recommended. (A) Approximately 10% of breast cancers are not detected by mammography. A normal mammogram should not delay biopsy of a clinically suspicious abnormality. Electronically Signed: Nate Irvin MD at 12:08 EDT ,
== END | disposition home or self-care (01) ==
LOC: OPBI 08:11
PROVIDERS: PCP Family Medicine; Visit Provider Nurse Practitioner Women's Health
DX: Z12.31 Encounter for screening mammogram for malignant neoplasm of breast (principal)
CPT/HCPCS: 77063; 77067

== ENCOUNTER → 2022-09-04 | Outpatient (CLI) | payer OTHER, SELFPAY | END | disposition home or self-care (01) | LOC: PSN 13:58 | PROVIDERS: PCP Family Medicine; Referring Provider Family Medicine; Visit Provider Family Medicine | DX: R00.2 Palpitations (principal) | CPT/HCPCS: 93225; 93226 ==

== ENCOUNTER → 2023-02-03 | Outpatient (CLI) | payer OTHER, SELFPAY ==
--- NOTE | 2023-02-03 08:41 | BI_ITS ---
MAMMOGRAPHY - BILATERAL SCREENING REASON FOR EXAM: Female, 52 years old. Routine annual screening examination. PERTINENT HISTORY: Non-contributory. Prior left stereotactic breast biopsy. TECHNIQUE: Digital bilateral breast ivonne (3D mammographic acquisition) in the CC and MLO projections. 2-D mediolateral oblique (MLO) and craniocaudad (CC) views of both breasts were obtained. CAD: Full Field Digital Mammography with Computer Added Detection was performed. COMPARISON: Comparison is made with prior study January 29, 2022 and January 17, 2021. FINDINGS: Breast Composition: The breasts are extremely dense, which lowers the sensitivity of mammography. There are no dominant masses or suspicious calcifications. A tissue clip marker is seen in the deep slightly inferior central aspect of the left breast. No other significant abnormalities are identified. There has been no significant change since the prior study. BI/SCRN MAMM (CAD)W/IVONNE BILAT IMPRESSION: Stable bilateral screening mammogram. Yearly follow-up mammogram recommended. (A) ASSESSMENT CATEGORY: BIRADS Category 2: Benign. A letter regarding these results will be sent to the patient by the facility within 30 days. Approximately 10% of breast cancers are not detected by mammography. A normal mammogram should not delay biopsy of a clinically suspicious abnormality. [id number] Electronically Signed: Baldev Bianchi MD at 11:10 EDT ,
[2023-02-09 15:07] LABS: HPV APTIMA, High Risk Negative (Negative)
== END | disposition home or self-care (01) ==
PROVIDERS: PCP Family Medicine; Referring Provider Nurse Practitioner Women's Health; Visit Provider Nurse Practitioner Women's Health
DX: Z12.31 Encounter for screening mammogram for malignant neoplasm of breast (principal)
CPT/HCPCS: 77063; 77067; 87624; 88175; G0145

== ENCOUNTER → 2024-02-09 | Outpatient (CLI) | payer OTHER, SELFPAY ==
--- NOTE | 2024-02-09 08:23 | BI_ITS ---
MAMMOGRAPHY - BILATERAL SCREENING REASON FOR EXAM: Female, 53 years old. Routine annual screening examination. PERTINENT HISTORY: Non-contributory. History of prior left stereotactic breast biopsy. TECHNIQUE: Digital bilateral breast ivonne (3D mammographic acquisition) in the CC and MLO projections. 2-D mediolateral oblique (MLO) and craniocaudad (CC) views of both breasts were obtained. CAD: Full Field Digital Mammography with Computer Added Detection was performed. COMPARISON: Comparison is made with prior study dated February 03, 2023 and January 29, 2022. FINDINGS: Breast Composition: The breasts are extremely dense, which lowers the sensitivity of mammography. There are no dominant masses or suspicious calcifications. A tissue clip marker is seen in the deep slightly inferior central portion of the left breast. No other significant abnormalities are identified. There has been no significant change since the prior study. BI/SCRN MAMM (CAD)W/IVONNE BILAT IMPRESSION: Stable bilateral screening mammogram. Yearly follow-up mammogram recommended. (A) ASSESSMENT CATEGORY: BIRADS Category 2: Benign. A letter regarding these results will be sent to the patient by the facility within 30 days. Approximately 10% of breast cancers are not detected by mammography. A normal mammogram should not delay biopsy of a clinically suspicious abnormality. [id number] Electronically Signed: Baldev Bianchi MD at 9:06 EDT ,
== END | disposition home or self-care (01) ==
LOC: OPBI 08:22
PROVIDERS: PCP Family Medicine; Referring Provider Nurse Practitioner Women's Health; Visit Provider Nurse Practitioner Women's Health
DX: Z12.31 Encounter for screening mammogram for malignant neoplasm of breast (principal)
CPT/HCPCS: 77063; 77067

== ENCOUNTER → 2025-02-09 | Outpatient (CLI) | payer OTHER, SELFPAY ==
--- NOTE | 2025-02-09 08:45 | BI_ITS ---
EXAM: SCRN MAMM (CAD)W/IVONNE BILAT DATE: 02/09/2025 CLINICAL HISTORY: F, Age 54 y/o , SCREEN FOR BREAST CANCER No family history. Prior left stereotactic breast biopsy. TECHNIQUE: SCRN MAMM (CAD)W/IVONNE BILAT COMPARISON: Prior exam(s) dated February 09, 2024.. FINDINGS: TISSUE DENSITY: The breasts are extremely dense, which lowers the sensitivity of mammography. Bilateral Breast Mammographic Findings: No significant masses, calcifications or other abnormalities are identified. A tissue clip marker is seen in the deep central slightly inferior aspect of the left breast. No suspicious masses, areas of developing architectural distortion, or suspicious calcifications. There has been no significant interval change. BI/SCRN MAMM (CAD)W/IVONNE BILAT IMPRESSION: Stable examination OVERALL FINAL ASSESSMENT BI-RADS 2: BENIGN RECOMMENDATION: Routine annual follow-up in 1 Year A letter with findings and recommendations will be mailed to the patient. Reading Location: [place] [address]
--- OUTSIDE RECORDS SUMMARY | 2025-02-09 09:22 | XMS RPT_ITS | CCD ---
Author Organization [facility] Care Team Providers Care Refrigeration Unit Repairer Name Role Phone Dr. Beba Sidhu Primary Care Provider [phone] Mame Clark Attending Provider Unavailable Dr. Beba Sidhu Referring Provider [phone] Dr. Alessio Lance Attending Provider Dr. Alessio Lance Other Provider [phone] [place] HAM CURER, HAM CURER-C Mikala Attending Provider Laina DOSummer Primary Care Provide r Howell [facility].CAMERA REPAIRMAN, Talat K Unavailable [phone] HOWELL, TALAT K Referring Unavailable TIRMONIA [facility] Care Unavail able HOWELL, TALAT K Referring Unavailable TIRMONIA, [facility] Primary Care Unavail able TALAT HOWELL K Attending Unavailable SELF Referring Unavailable Beba Sidhu Referring Unavailable Thea Beba Primary Care Unavailable [place] HAM CURER, Mikala Attending Unavailable Beba Sidhu Primary Care Unavailable [place] HAM CURER, Mikala Referring Unavailable [place] HAM CURER, Mikala Attending Unavailable Miedel, Beba Primary Care Unavailable [place] HAM CURER, Mikala Referring Unavailable [place] HAM CURER, Mikala Attending Unavailable Medications Current Medications Medication Drug Class(es) Dates Sig (Normalized) Sig (Original) atenolol 25 mg oral tablet (5 sources) beta-Adrenergic Bimal Start: 09-15-2016 atenolol (TENORMIN) 25 mg tablet Indications: Palpitations Take 1 tablet by mouth as needed. 30 tablet 09/15/2016 Active [place] (Nk) (2 sources) Start: 12-03-2021 [place] (Nk) Active December 02, 2021 11:00pm Start: 12-03-2021 [place] (Nk) A ctive December 03, 2021 12:00am Completed/Discontinued Medications Medication Drug Class(es) Dates Sig (Normalized) Sig (Original) Bcp (2 sources) Start: 07-20-2014 End: 12-31-2018 Bcp Discontinued July 20, 2014 12:00am December 31, 2018 7:52am Start: 07-20-2014 End: 12-31-2018 Bcp Discontinued June 1:00am December 31, 2018 8:52am benzonatate 100 mg oral capsule (1 source) Non-narcotic Antitussive Start: 09-11-2017 End: 07-21-2024 take 2 capsules by mouth three times daily as needed for cough benzonatate (TESSALON PERLES) 100 mg capsule Indications: Sinobronchitis Take 2 capsules by mouth three times daily as needed for Cough. 30 capsule 09/11/2017 07/21/2024 Discontinued Desog-E.Estradiol /E.Estradiol (15 sources) Progestin, Estrogen Start: 01-17-2021 End: 10-14-2021 take 1 tablet by mouth once daily Desog-E.Estradiol/E. Estradiol (Viorele (28)) 0.15-0.02 mgx21 /0.01 mg x 5 tablet Discontinued 1 TABLET PO DAILY January 17, 2021 7:46am October 14, 2021 2:17pm Take active pills only for continuous cycling Start: 01-17-2021 End: 10-14-2021 take 1 tablet by mouth once daily Desog-E.Estradiol/E.Estradiol (Viorele ( 28)) 0.15-0.02 mgx21 /0.01 mg x 5 tablet Discontinued 1 TABLET PO DAILY January 17, 2021 8:46am October 14, 2021 3:17pm Take active pills only for continuous cycling Start: 01-12-2020 End: 01-17-2021 take 1 tablet by mouth once daily Desog-E.Estradiol/E.Estradiol (Viorele ( 28)) 0.15-0.02 mgx21 /0.01 mg x 5 tablet Discontinued 1 TABLET PO DAILY January 12, 2020 8:05am January 17, 2021 7:46am Take active pills only for continuous cycling Start: 01-12-2020 End: 01-17-2021 take 1 tablet by mouth once daily Desog-E.Estradiol/E.Estradiol (Viorele ( 28)) 0.15-0.02 mgx21 /0.01 mg x 5 tablet Discontinued 1 TABLET PO DAILY January 12, 2020 9:05am January 17, 2021 8:46am Take active pills only for continuous cycling Start: 02-21-2019 End: 01-12-2020 take 1 tablet by mouth once daily Desog-E.Estradiol/E.Estradiol (Viorele ( 28)) 0.15-0.02 mgx21 /0.01 mg x 5 tablet Discontinued 1 TABLET PO DAILY February 20, 2019 11:00pm January 12, 2020 8:05am Take active pills only for continuous cycling Start: 02-21-2019 End: 01-12-2020 take 1 tablet by mouth once daily Desog-E.Estradiol/E.Estradiol (Viorele ( 28)) 0.15-0.02 mgx21 /0.01 mg x 5 tablet Discontinued 1 TABLET PO DAILY February 21, 2019 12:00am January 12, 2020 9:05am Take active pills only for continuous cycling Start: 12-31-2018 End: 02-21-2019 Desog-E.Estradiol/E.Estradio l (Mircette (28)) 0.15-0.02 mgx21 /0.01 mg x 5 tablet Discontinued 1 TABLET PO .COMPLEX 84 December 31, 2018 8:04am February 21, 2019 1:45pm 1 tab PO active pills only for continuous cycling Start: 12-31-2018 End: 02-21-2019 Desog-E.Estradiol/E.Estradio l (Mircette (28)) 0.15-0.02 mgx21 /0.01 mg x 5 tablet Discontinued 1 TABLET PO .COMPLEX 84 December 31, 2018 9:04am February 21, 2019 2:45pm 1 tab PO active pills only for continuous cycling Start: 12-09-2018 End: 12-31-2018 Desog-E.Estradiol/E.Estradio l (Mircette (28)) 0.15-0.02 mgx21 /0.01 mg x 5 tablet Discontinued 1 TABLET PO .COMPLEX December 09, 2018 7:41am December 31, 2018 8:05am 1 tab PO active pills only for continuous cycling Start: 12-09-2018 End: 12-31-2018 Desog-E.Estradiol/E.Estradio l (Mircette (28)) 0.15-0.02 mgx21 /0.01 mg x 5 tablet Discontinued 1 TABLET PO .COMPLEX December 09, 2018 8:41am December 31, 2018 9:05am 1 tab PO active pills only for continuous cycling Start: 12-28-2017 End: 12-09-2018 Desog-E.Estradiol/E.Estradio l (Mircette (28)) 0.15-0.02 mgx21 /0.01 mg x 5 tablet Discontinued 1 TABLET PO .COMPLEX 84 December 28, 2017 7:39am December 09, 2018 7:42am 1 tab PO active pills only for continuous cycling Start: 12-28-2017 End: 12-09-2018 Desog-E.Estradiol/E.Estradio l (Mircette (28)) 0.15-0.02 mgx21 /0.01 mg x 5 tablet Discontinued 1 TABLET PO .COMPLEX 84 December 28, 2017 8:39am December 09, 2018 8:42am 1 tab PO active pills only for continuous cycling Start: 12-28-2017 End: 12-28-2017 take 0.15 tablet by mouth once daily Desog-E.Estradiol/E.Estradiol (Mircette (28)) 0.15-0.02 mgx21 /0.01 mg x 5 tablet Discontinued 1 TABLET PO daily December 27, 2017 11:00pm December 28, 2017 7:41am Start: 12-28-2017 End: 12-28-2017 take 0.15 tablet by mouth once daily Desog-E.Estradiol/E.Estradiol (Mircette (28)) 0.15-0.02 mgx21 /0.01 mg x 5 tablet Discontinued 1 TABLET PO daily December 28, 2017 12:00am December 28, 2017 8:41am Start: 07-21-2017 End: 07-21-2024 take 1 tablet by mouth once daily Desogestrel-Ethinyl Estradiol (MIRCETTE, 28,) 0.15-0.02 mgx21 /0.01 mg x 5 per tablet Indications: Irregular periods/menstrual cycles , Dysmenorrhea , General counseling for prescription of oral contraceptives Take 1 tablet by mouth daily to take active pills continuously 4 Package 1 07/21/2017 07/21/2024 Discontinued meclizine hydrochloride 25 mg oral tablet (2 sources) Antiemetic Start: 07-20-2014 End: 12-31-2018 take 25 mg by mouth every eight hours as needed Meclizine Discontinued 25 MG PO EVERY 8 HOURS NEEDED July 20, 2014 2:29pm December 31, 2018 7:52am nortriptyline 10 mg oral capsule (1 source) Tricyclic Antidepressant Start: 09-15-2016 End: 07-21-2024 take 1-3 capsules by mouth once daily at bedtime nortriptyline (PAMELOR) 10 mg capsule Indications: Sleep disorder Take 1-3 capsules by mouth daily at bedtime. 40 capsule 09/15/2016 07/21/2024 Discontinued Problems Active Problems Problem Classification Problem Date Documented Da te Episodic/Chronic Administrative/social admission (1 source) First encounter by subject; Translations: [Persons encountering health services in other specified circumstances] 07-21-2024 Episodic Diseases of white blood cells (2 sources) Leukopenia; Translations: [Decreased white blood cell count, unspecified] Onset: 09-08-2024 08-05-2024 Chronic Malaise and fatigue (2 sources) Fatigue; Translations: [Other fatigue] Onset: 08-04-2024 07-21-2024 Episodic Nutritional deficiencies (2 sources) Vitamin D deficiency; Translations: [Vitamin D deficiency, unspecified] Onset: 08-04-2024 07-21-2024 Chronic Other bone disease and musculoskeletal deformities (9 sources) Segmental and somatic dysfunction; Translations: [Segmental and somatic dysfunction of cervical region] 01-13-2019 Episodic Other gastrointestinal disorders (5 sources) Irritable bowel syndrome; Translations: [Irritable bowel syndrome without diarrhea] Onset: 08-11-2006 01-07-2024 Chronic Other screening for suspected conditions (not mental disorders or infectious disease) (16 sources) Patient encounter status; Translations: [Encounter for screening for malignant neoplasm of colon] Onset: 03-03-2024 Episodic Past or Other Problems Problem Classification Problem Date Documented Date Episodic/Chronic Cardiac dysrhythmias (6 sources) Palpitations; Translations: [Palpitations] Onset: 11-19-2006 07-21-2024 Episodic Conditions associated with dizziness or vertigo (5 sources) Benign paroxysmal positional vertigo; Translations: [Benign paroxysmal vertigo, unspecified ear] Onset: 09-11-2014 09-11-2014 Episodic Joint disorders and dislocations; trauma-related (5 sources) Chondromalacia of patella; Translations: [Chondromalacia patellae, unspecified knee] Onset: 07-01-2006 Resolved: 11-10-2008 11-10-2008 Chronic Spondylosis; intervertebral disc disorders; other back problems (13 sources) Neck pain; Translations: [Cervicalgia] Onset: 08-11-2006 Resolved: 12-11-2014 04-16-2020 Episodic Unclassified (1 source) Patient encounter status 08-16-2024 Results Test Name Value Interpretation Reference Range Facil brian Arguello 09-16-2024 MARCELAN Telephone (INTMBE) TOMÁS CHI ([id number]) 1970 F Date Time Provider Department 09/16/24 [facility] During your visit today, we recorded the following information about you: Reinaldo Pinto MA 09/16/2024 12:58 PM Signed A fax was sent and received to Dr. Sidhu requesting medical records. SHANNAN Hunter Cesar, MA 10/05/2024 10:27 AM Signed Records received. Reinaldo Pinto MA Allergies As of Date: 09/16/2024 (No Known Allergies) Date Reviewed: 07/21/2024 Reviewed by: Talat Howell APRN.CAMERA REPAIRMAN - Fully Assessed Reason for Visit: Patient Update [1234] Cmt: Medical Records Prescriptions as of 10/05/2024 - atenolol (TENORMIN) 25 mg tablet Take 1 tablet by mouth as needed. Problem List As Of Date 09/16/2024 Noted Resolved CHONDROMALACIA PATELLAE [M22.40] 07/01/2006 11/10/2008 IRRITABLE COLON [K58.9] 08/11/2006 Cervicalgia [M54.2] 08/11/2006 12/11/2014 PALPITATIONS [R00.2] 11/19/2006 Recurrent Low Back Pain [M54.50] 05/01/2009 Routine medical exam [Z00.00] 05/15/2010 01/07/2012 Benign paroxysmal positional vertigo [H81.10] 09/11/2014 Encounter Status:Closed by REINALDO PINTO on 09/16/24 Normal [facility] CBC W Auto Differential pane l (Bld)on 09-08-2024 Basophils (Bld) [#/Vol] 0.03 10*3/uL Normal <0.11 [facility] Comment on above: Order Comment: Speci men Type: BLOOD SPECIMEN Ordering Facility: [facility] Address: [address] [place] [address] Performed By: #### 5 7021-8 #### [facility] CLIA [id number] [address] [place] [address] [place] Basophils/100 WBC (Bld) 0.5 % Normal [facility] Comment on above: Order Comment: Speci men Type: BLOOD SPECIMEN Ordering Facility: [facility] Address: [address] [place] [address] Performed By: #### 5 7021-8 #### [facility] CLIA [id number] [address] [place] [address] [place] Differential cell count method Nom (Bld) Auto Normal [facility] Comment on above: Order Comment: Speci men Type: BLOOD SPECIMEN Ordering Facility: [facility] Address: [address] [place] [address] Performed By: #### 5 7021-8 #### [facility] CLIA [id number] [address] [place] [address] [place] Eosinophils (Bld) [#/Vol] 0.11 10*3/uL Normal <0.46 [facility] Comment on above: Order Comment: Speci men Type: BLOOD SPECIMEN Ordering Facility: [facility] Address: [address] [place] [address] Performed By: #### 5 7021-8 #### [facility] CLIA [id number] [address] [place] [address] [place] Eosinophils/100 WBC (Bld) 1.9 % Normal [facility] Comment on above: Order Comment: Speci men Type: BLOOD SPECIMEN Ordering Facility: [facility] Address: [address] [place] [address] Performed By: #### 5 7021-8 #### [facility] CLIA [id number] [address] [place] [address] [place] Erythrocyte distribution width (RBC) [Ratio] 12.7 % Normal 11.5-15.0 [facility] Comment on above: Order Comment: Speci men Type: BLOOD SPECIMEN Ordering Facility: [facility] Address: [address] [place] [address] Performed By: #### 5 7021-8 #### [facility] CLIA [id number] [address] [place] [address] [place] Hematocrit (Bld) [Volume fraction] 42.1 % Normal 36.0-46.0 [facility] Comment on above: Order Comment: Speci men Type: BLOOD SPECIMEN Ordering Facility: [facility] Address: [address] [place] [address] Performed By: #### 5 7021-8 #### [facility] CLIA [id number] [address] [place] [address] [place] Hemoglobin (Bld) [Mass/Vol] 13.9 g/dL Normal 11.5-15.5 [facility] Comment on above: Order Comment: Speci men Type: BLOOD SPECIMEN Ordering Facility: [facility] Address: [address] [place] [address] Performed By: #### 5 7021-8 #### [facility] CLIA [id number] [address] [place] [address] [place] Immature granulocytes (Bld) [#/Vol] 10*3/uL Normal <0.10 [facility] Comment on above: Order Comment: Speci men Type: BLOOD SPECIMEN Ordering Facility: [facility] Address: [address] [place] [address] Performed By: #### 5 7021-8 #### [facility] CLIA [id number] [address] [place] [address] [place] Immature granulocytes/100 WBC (Bld) 0.2 % Normal [facility] Comment on above: Order Comment: Speci men Type: BLOOD SPECIMEN Ordering Facility: [facility] Address: [address] [place] [address] Performed By: #### 5 7021-8 #### [facility] CLIA [id number] [address] [place] [address] [place] Lymphocytes (Bld) [#/Vol] 2.56 10*3/uL Normal 1.00-4.00 [facility] Comment on above: Order Comment: Speci men Type: BLOOD SPECIMEN Ordering Facility: [facility] Address: [address] [place] [address] Performed By: #### 5 7021-8 #### [facility] CLIA [id number] [address] [place] [address] [place] Lymphocytes/100 WBC (Bld) 43.9 % Normal [facility] Comment on above: Order Comment: Speci men Type: BLOOD SPECIMEN Ordering Facility: [facility] Address: [address] [place] [address] Performed By: #### 5 7021-8 #### [facility] CLIA [id number] [address] [place] [address] [place] MCH (RBC) [Entitic mass] 29.5 pg Normal 26.0-34.0 [facility] Comment on above: Order Comment: Speci men Type: BLOOD SPECIMEN Ordering Facility: [facility] Address: [address] [place] [address] Performed By: #### 5 7021-8 #### [facility] CLIA [id number] [address] [place] [address] [place] MCHC (RBC) [Mass/Vol] 33.0 g/dL Normal 30.5-36.0 [facility] Comment on above: Order Comment: Speci men Type: BLOOD SPECIMEN Ordering Facility: [facility] Address: [address] [place] [address] Performed By: #### 5 7021-8 #### [facility] CLIA [id number] [address] [place] [address] [place] MCV (RBC) [Entitic vol] 89.4 fL Normal 80.0-100.0 [facility] Comment on above: Order Comment: Speci men Type: BLOOD SPECIMEN Ordering Facility: [facility] Address: [address] [place] [address] Performed By: #### 5 7021-8 #### [facility] CLIA [id number] [address] [place] [address] [place] Monocytes (Bld) [#/Vol] 0.36 10*3/uL Normal <0.87 [facility] Comment on above: Order Comment: Speci men Type: BLOOD SPECIMEN Ordering Facility: [facility] Address: [address] [place] [address] Performed By: #### 5 7021-8 #### [facility] CLIA [id number] [address] [place] [address] [place] Monocytes/100 WBC (Bld) 6.2 % Normal [facility] Comment on above: Order Comment: Speci men Type: BLOOD SPECIMEN Ordering Facility: [facility] Address: [address] [place] [address] Performed By: #### 5 7021-8 #### [facility] CLIA [id number] [address] [place] [address] [place] Neutrophils (Bld) [#/Vol] 2.76 10*3/uL Normal 1.45-7.50 [facility] Comment on above: Order Comment: Speci men Type: BLOOD SPECIMEN Ordering Facility: [facility] Address: [address] [place] [address] Performed By: #### 5 7021-8 #### [facility] CLIA [id number] [address] [place] [address] [place] Neutrophils/100 WBC (Bld) 47.3 % Normal [facility] Comment on above: Order Comment: Speci men Type: BLOOD SPECIMEN Ordering Facility: [facility] Address: [address] [place] [address] Performed By: #### 5 7021-8 #### [facility] CLIA [id number] [address] [place] [address] [place] Nucleated RBC (Bld) [#/Vol] 10*3/uL Normal <0.01 [facility] Comment on above: Order Comment: Speci men Type: BLOOD SPECIMEN Ordering Facility: [facility] Address: [address] [place] [address] Performed By: #### 5 7021-8 #### [facility] CLIA [id number] [address] [place] [address] [place] Nucleated RBC/100 WBC (Bld) [Ratio] 0.0 /100 WBC Normal [facility] Comment on above: Order Comment: Speci men Type: BLOOD SPECIMEN Ordering Facility: [facility] Address: [address] [place] [address] Performed By: #### 5 7021-8 #### [facility] CLIA [id number] [address] [place], [place] [id number] [place] Platelet mean volume (Bld) [Entitic vol] 10.3 fL Normal 9.0-12.7 [facility] Comment on above: Order Comment: Speci men Type: BLOOD SPECIMEN Ordering Facility: [facility] Address: [address] [place] [address] Performed By: #### 5 7021-8 #### [facility] CLIA [id number] [address] [place] [address] [place] Platelets (Bld) [#/Vol] 240 10*3/uL Normal 150-400 [facility] Comment on above: Order Comment: Speci men Type: BLOOD SPECIMEN Ordering Facility: [facility] Address: [address] [place] [address] Performed By: #### 5 7021-8 #### [facility] CLIA [id number] [address] [place] [address] [place] RBC (Bld) [#/Vol] 4.71 10*6/uL Normal 3.90-5.20 [facility] Comment on above: Order Comment: Speci men Type: BLOOD SPECIMEN Ordering Facility: [facility] Address: [address] [place] [address] Performed By: #### 5 7021-8 #### [facility] CLIA [id number] [address] [place] [address] [place] WBC (Bld) [#/Vol] 5.83 10*3/uL Normal 3.70-11.00 [facility] Comment on above: Order Comment: Speci men Type: BLOOD SPECIMEN Ordering Facility: [facility] Address: [address] [place] [address] Performed By: #### 5 7021-8 #### [facility] CLIA [id number] [address] [place] [address] [place] [facility] 25-hydroxyvitamin D3 [Mass/Vol] 40.5 ng/mL Normal 31.0-80.0 [facility] Comment on above: Order Comment: Speci men Type: BLOOD SPECIMEN Ordering Facility: [facility] Address: [address] [place] [address] Result Comment: Clas sification of 25 OH Vitamin D status: Deficiency/Insufficiency: < or = 30 ng/ml. Sufficiency/Optimal Levels: 31-80 ng/mL Toxicity: > 100 ng/mL. Test performed by chemiluminescent immunoassay. Performed By: #### 1 989-3 #### [facility] CLIA [id number] [address] [place] [address] [place] CBC W Auto Differential pane l (Bld)on 08-04-2024 Basophils (Bld) [#/Vol] 10*3/uL Normal <0.11 [facility] Comment on above: Order Comment: Speci men Type: BLOOD SPECIMEN Ordering Facility: [facility] Address: [address] [place] [address] Performed By: #### 5 7021-8 #### [facility] CLIA [id number] [address] [place] [address] [place] Basophils/100 WBC (Bld) 0.6 % Normal [facility] Comment on above: Order Comment: Speci men Type: BLOOD SPECIMEN Ordering Facility: [facility] Address: [address] [place] [address] Performed By: #### 5 7021-8 #### [facility] CLIA [id number] [address] [place] [address] [place] Differential cell count method Nom (Bld) Auto Normal [facility] Comment on above: Order Comment: Speci men Type: BLOOD SPECIMEN Ordering Facility: [facility] Address: [address] [place] [address] Performed By: #### 5 7021-8 #### [facility] CLIA [id number] [address] [place] [address] [place] Eosinophils (Bld) [#/Vol] 0.05 10*3/uL Normal <0.46 [facility] Comment on above: Order Comment: Speci men Type: BLOOD SPECIMEN Ordering Facility: [facility] Address: [address] [place] [address] Performed By: #### 5 7021-8 #### [facility] CLIA [id number] [address] [place] [address] [place] Eosinophils/100 WBC (Bld) 1.6 % Normal [facility] Comment on above: Order Comment: Speci men Type: BLOOD SPECIMEN Ordering Facility: [facility] Address: [address] [place] [address] Performed By: #### 5 7021-8 #### [facility] CLIA [id number] [address] [place] [address] [place] Erythrocyte distribution width (RBC) [Ratio] 12.7 % Normal 11.5-15.0 [facility] Comment on above: Order Comment: Speci men Type: BLOOD SPECIMEN Ordering Facility: [facility] Address: [address] [place] [address] Performed By: #### 5 7021-8 #### [facility] CLIA [id number] [address] [place] [address] [place] Hematocrit (Bld) [Volume fraction] 40.3 % Normal 36.0-46.0 [facility] Comment on above: Order Comment: Speci men Type: BLOOD SPECIMEN Ordering Facility: [facility] Address: [address] [place] [address] Performed By: #### 5 7021-8 #### [facility] CLIA [id number] [address] [place] [address] [place] Hemoglobin (Bld) [Mass/Vol] 13.4 g/dL Normal 11.5-15.5 [facility] Comment on above: Order Comment: Speci men Type: BLOOD SPECIMEN Ordering Facility: [facility] Address: [address] [place] [address] Performed By: #### 5 7021-8 #### [facility] CLIA [id number] [address] [place] [address] [place] Immature granulocytes (Bld) [#/Vol] 10*3/uL Normal <0.10 [facility] Comment on above: Order Comment: Speci men Type: BLOOD SPECIMEN Ordering Facility: [facility] Address: [address] [place] [address] Performed By: #### 5 7021-8 #### [facility] CLIA [id number] [address] [place] [address] [place] Immature granulocytes/100 WBC (Bld) 0.3 % Normal [facility] Comment on above: Order Comment: Speci men Type: BLOOD SPECIMEN Ordering Facility: [facility] Address: [address] [place] [address] Performed By: #### 5 7021-8 #### [facility] CLIA [id number] [address] [place] [address] [place] Lymphocytes (Bld) [#/Vol] 1.37 10*3/uL Normal 1.00-4.00 [facility] Comment on above: Order Comment: Speci men Type: BLOOD SPECIMEN Ordering Facility: [facility] Address: [address] [place] [address] Performed By: #### 5 7021-8 #### [facility] CLIA [id number] [address] [place] [address] [place] Lymphocytes/100 WBC (Bld) 42.5 % Normal [facility] Comment on above: Order Comment: Speci men Type: BLOOD SPECIMEN Ordering Facility: [facility] Address: [address] [place] [address] Performed By: #### 5 7021-8 #### [facility] CLIA [id number] [address] [place] [address] [place] MCH (RBC) [Entitic mass] 29.6 pg Normal 26.0-34.0 [facility] Comment on above: Order Comment: Speci men Type: BLOOD SPECIMEN Ordering Facility: [facility] Address: [address] [place] [address] Performed By: #### 5 7021-8 #### [facility] CLIA [id number] [address] [place] [address] [place] MCHC (RBC) [Mass/Vol] 33.3 g/dL Normal 30.5-36.0 [facility] Comment on above: Order Comment: Speci men Type: BLOOD SPECIMEN Ordering Facility: [facility] Address: [address] [place] [address] Performed By: #### 5 7021-8 #### [facility] CLIA [id number] [address] [place] [address] [place] MCV (RBC) [Entitic vol] 89.2 fL Normal 80.0-100.0 [facility] Comment on above: Order Comment: Speci men Type: BLOOD SPECIMEN Ordering Facility: [facility] Address: [address] [place] [address] Performed By: #### 5 7021-8 #### [facility] CLIA [id number] [address] [place] [address] [place] Monocytes (Bld) [#/Vol] 0.25 10*3/uL Normal <0.87 [facility] Comment on above: Order Comment: Speci men Type: BLOOD SPECIMEN Ordering Facility: [facility] Address: [address] [place] [address] Performed By: #### 5 7021-8 #### [facility] CLIA [id number] [address] [place] [address] [place] Monocytes/100 WBC (Bld) 7.8 % Normal [facility] Comment on above: Order Comment: Speci men Type: BLOOD SPECIMEN Ordering Facility: [facility] Address: [address] [address] Performed By: #### 5 7021-8 #### [facility] CLIA [id number] [address] [place] [address] [place] Neutrophils (Bld) [#/Vol] 1.52 10*3/uL Normal 1.45-7.50 [facility] Comment on above: Order Comment: Speci men Type: BLOOD SPECIMEN Ordering Facility: [facility] Address: [address] [place] [address] Performed By: #### 5 7021-8 #### [facility] CLIA [id number] [address] [place] [address] [place] Neutrophils/100 WBC (Bld) 47.2 % Normal [facility] Comment on above: Order Comment: Speci men Type: BLOOD SPECIMEN Ordering Facility: [facility] Address: [address] [place] [address] Performed By: #### 5 7021-8 #### [facility] CLIA [id number] [address] [place] [address] [place] Nucleated RBC (Bld) [#/Vol] 10*3/uL Normal <0.01 [facility] Comment on above: Order Comment: Speci men Type: BLOOD SPECIMEN Ordering Facility: [facility] Address: [address] [place] [address] Performed By: #### 5 7021-8 #### [facility] CLIA [id number] [address] [place] [address] [place] Nucleated RBC/100 WBC (Bld) [Ratio] 0.0 /100 WBC Normal [facility] Comment on above: Order Comment: Speci men Type: BLOOD SPECIMEN Ordering Facility: [facility] Address: [address] [place] [address] Performed By: #### 5 7021-8 #### [facility] CLIA [id number] [address] [place] [address] [place] Platelet mean volume (Bld) [Entitic vol] 10.4 fL Normal 9.0-12.7 [facility] Comment on above: Order Comment: Speci men Type: BLOOD SPECIMEN Ordering Facility: [facility] Address: [address] [place] [address] Performed By: #### 5 7021-8 #### [facility] CLIA [id number] [address] [place] [address] [place] Platelets (Bld) [#/Vol] 186 10*3/uL Normal 150-400 [facility] Comment on above: Order Comment: Speci men Type: BLOOD SPECIMEN Ordering Facility: [facility] Address: [address] [place] [address] Performed By: #### 5 7021-8 #### [facility] CLIA [id number] [address] [place] [address] [place] RBC (Bld) [#/Vol] 4.52 10*6/uL Normal 3.90-5.20 [facility] Comment on above: Order Comment: Speci men Type: BLOOD SPECIMEN Ordering Facility: [facility] Address: [address] [place] [address] Performed By: #### 5 7021-8 #### [facility] CLIA [id number] [address] [place] [address] [place] WBC (Bld) [#/Vol] 3.22 10*3/uL Low 3.70-11.00 [facility] Comment on above: Order Comment: Speci men Type: BLOOD SPECIMEN Ordering Facility: [facility] Address: [address] [place] [address] Performed By: #### 5 7021-8 #### [facility] CLIA [id number] [address] [place] [address] [place] Comprehensive metabolic 2000 panelon 08-04-2024 Albumin [Mass/Vol] 4.5 g/dL Normal 3.9-4.9 [facility] Comment on above: Order Comment: Speci men Type: BLOOD SPECIMEN Ordering Facility: [facility] Address: [address] [place] [address] Performed By: #### 3 024-7, 3016-3, 83281-0, 96117-8 #### [facility] CLIA [id number] [address] [place] [address] [place] ALP [Catalytic activity/Vol] 77 U/L Normal 34-123 [facility] Comment on above: Order Comment: Speci men Type: BLOOD SPECIMEN Ordering Facility: [facility] Address: [address] [place] [address] Performed By: #### 3 024-7, 6-3, 61061-9, 49008-6 #### [facility] CLIA [id number] [address] [place] [address] [place] ALT [Catalytic activity/Vol] 20 U/L Normal 7-38 [facility] Comment on above: Order Comment: Speci men Type: BLOOD SPECIMEN Ordering Facility: [facility] Address: [address] [place] [address] Performed By: #### 3 024-7, 6-3, 46653-0, 27839-1 #### [facility] CLIA [id number] [address] [place] [address] [place] Anion gap [Moles/Vol] 10 mmol/L Normal 8-15 [facility] Comment on above: Order Comment: Speci men Type: BLOOD SPECIMEN Ordering Facility: [facility] Address: [address] [place] [address] Performed By: #### 3 024-7, 3016-3, 02617-6, 35044-7 #### [facility] CLIA [id number] [address] [place], [place] [address] [place] AST [Catalytic activity/Vol] 22 U/L Normal 13-35 [facility] Comment on above: Order Comment: Speci men Type: BLOOD SPECIMEN Ordering Facility: [facility] Address: [address] [place] [address] Performed By: #### 3 024-7, 3016-3, 90934-8, 67173-2 #### [facility] CLIA [id number] [address] [place] [address] [place] Bilirubin [Mass/Vol] 0.4 mg/dL Normal 0.2-1.3 [facility] Comment on above: Order Comment: Speci men Type: BLOOD SPECIMEN Ordering Facility: [facility] Address: [address] [place] [address] Performed By: #### 3 024-7, 3016-3, 03527-9, 23508-8 #### [facility] CLIA [id number] [address] [place] [address] [place] Calcium [Mass/Vol] 9.9 mg/dL Normal 8.5-10.2 [facility] Comment on above: Order Comment: Speci men Type: BLOOD SPECIMEN Ordering Facility: [facility] Address: [address] [place] [address] Performed By: #### 3 024-7, 6-3, 42342-0, 83526-9 #### [facility] CLIA [id number] [address] [place] [address] [place] Chloride [Moles/Vol] 103 mmol/L Normal 98-107 [facility] Comment on above: Order Comment: Speci men Type: BLOOD SPECIMEN Ordering Facility: [facility] Address: [address] [place] [address] Performed By: #### 3 024-7, 6-3, 40959-2, 00730-5 #### [facility] CLIA [id number] [address] [place] [address] [place] CO2 [Moles/Vol] 28 mmol/L Normal 22-30 [facility] Comment on above: Order Comment: Speci men Type: BLOOD SPECIMEN Ordering Facility: [facility] Address: [address] [place] [address] Performed By: #### 3 024-7, 3016-3, 46110-9, 43472-4 #### [facility] CLIA [id number] [address] [place] [address] [place] Creatinine [Mass/Vol] 0.80 mg/dL Normal 0.58-0.96 [facility] Comment on above: Order Comment: Speci men Type: BLOOD SPECIMEN Ordering Facility: [facility] Address: [address] [place] [address] Performed By: #### 3 024-7, 3016-3, 63068-1, 03783-9 #### [facility] CLIA [id number] [address] [place] [address] [place] Creatinine and Glomerular filtration rate.predicted panel (S/P/Bld) 88 mL/min/1.73m??? Normal >=60 [facility] Comment on above: Order Comment: Gavini men Type: BLOOD SPECIMEN Ordering Facility: [facility] Address: [address] [place] [address] Result Comment: Esthela mated Glomerular Filtration Rate (eGFR) is calculated using the 2020 CKD-EPI creatinine equation. This equation utilizes serum creatinine, sex, and age as parameters. The creatinine assay has traceable calibration to isotope dilution-mass spectrometry. Refer to KDIGO guidelines for clinical interpretation. In patients with unstable renal function, e.g. those with acute kidney injury, the eGFR may not accurately reflect actual GFR. Performed By: #### 3 024-7, 3016-3, 47513-9, 27916-5 #### [facility] CLIA [id number] [address] [place] [address] [place] Glucose [Mass/Vol] 90 mg/dL Normal 74-99 [facility] Comment on above: Order Comment: Speci men Type: BLOOD SPECIMEN Ordering Facility: [facility] Address: [address] [place] [address] Result Comment: The [place] Diabetes Association (ADA) provides guidance for cutoff values for fasting glucose and random glucose. The ADA defines fasting as no caloric intake for at least 8 hours. Fasting plasma glucose results between 100 to 125 mg/dL indicate increased risk for diabetes (prediabetes). Fasting plasma glucose results greater than or equal to 126 mg/dL meet the criteria for diagnosis of diabetes. In the absence of unequivocal hyperglycemia, results should be confirmed by repeat testing. In a patient with classic symptoms of hyperglycemia or hyperglycemic crisis, random plasma glucose results greater than or equal to 200 mg/dL meet the criteria for diagnosis of diabetes. Reference: Standards of Medical Care in Diabetes 2016, [place] Diabetes Association. Diabetes Care. 2016.39(Suppl 1). Performed By: #### 3 024-7, 3015-3, 38637-6, 42784-8 #### [facility] CLIA [id number] [address] [place] [address] [place] Potassium [Moles/Vol] 4.2 mmol/L Normal 3.7-5.1 [facility] Comment on above: Order Comment: Speci men Type: BLOOD SPECIMEN Ordering Facility: [facility] Address: [address] [place] [address] Performed By: #### 3 024-7, 3015-3, 24090-3, #### [facility] CLIA [id number] [address] [place] [address] [place] Protein [Mass/Vol] 7.3 g/dL Normal 6.3-8.0 [facility] Comment on above: Order Comment: Speci men Type: BLOOD SPECIMEN Ordering Facility: [facility] Address: [address] [place] [address] Performed By: #### 3 024-7, 3, 44181-1, 97467-8 #### [facility] CLIA [id number] [address] [place] [address] [place] Sodium [Moles/Vol] 141 mmol/L Normal 136-144 [facility] Comment on above: Order Comment: Speci men Type: BLOOD SPECIMEN Ordering Facility: [facility] Address: [address] [place] [address] Performed By: #### 3 024-7, 3016-3, 71569-7, 42470-9 #### [facility] CLIA [id number] [address] [place] [address] [place] Urea nitrogen [Mass/Vol] 19 mg/dL Normal 7-21 [facility] Comment on above: Order Comment: Dylan men Type: BLOOD SPECIMEN Ordering Facility: [facility] Address: [address] [place] [address] Performed By: #### 3 024-7, 3016-3, 51595-3, 74957-3 #### [facility] CLIA [id number] [address] [place] [address] [place] HbA1c (Bld)on 08-04-2024 Average glucose Estimated from glycated hemoglobin (Bld) [Mass/Vol] 100 mg/dL Normal [facility] Comment on above: Order Comment: Dylan montiel Type: BLOOD SPECIMEN Ordering Facility: [facility] Address: [address] [place] [address] Result Comment: eAG: (Estimated average glucose) is a calculated value from HgbA1c and is registered representative of the average blood glucose level in the last 2-3 month period. Performed By: #### 5 5454-3 #### [facility] CLIA [id number] [address] [place] [address] [place] HbA1c (Bld) [Mass fraction] 5.1 % Normal 4.3-5.6 [facility] Comment on above: Order Comment: Dylan tiana Type: BLOOD SPECIMEN Ordering Facility: [facility] Address: [address] [place] [address] Result Comment: Danial [place] Diabetes Association guidelines indicate that patients with HgbA1c in the range 5.7-6.4% are at increased risk for development of diabetes, and intervention by lifestyle modification may be beneficial. HgbA1c greater or equal to 6.5% is considered diagnostic of diabetes. Performed By: #### 5 5454-3 #### [facility] CLIA [id number] [address] [place] [address] [place] Lipid 1996 panelon 5 Cholesterol [Mass/Vol] 195 mg/dL Normal <200 [facility] Comment on above: Order Comment: Speci men Type: BLOOD SPECIMEN Ordering Facility: [facility] Address: [address] [place] [address] Result Comment: <200 mg/dL, Desirable 200-239 mg/dL, Borderline high >239 mg/dL, High Performed By: #### 3 024-7, 3016-3, 41227-7, 47887-3 #### [facility] CLIA [id number] [address] [place] [address] [place] Cholesterol in HDL [Mass/Vol] 76 mg/dL Normal >39 [facility] Comment on above: Order Comment: Dylan montiel Type: BLOOD SPECIMEN Ordering Facility: [facility] Address: [address] [place] [address] Result Comment: 40-5 9 mg/dL, Acceptable >59 mg/dL, High: Negative risk factor for coronary heart disease <40 mg/dL, Low: Positive risk factor for coronary heart disease Performed By: #### 3 024-7, 3016-3, 76168-0, 73064-5 #### [facility] CLIA [id number] [address] [place] [address] [place] Cholesterol in LDL [Mass/Vol] 111 mg/dL High <100 [facility] Comment on above: Order Comment: Gavini men Type: BLOOD SPECIMEN Ordering Facility: [facility] Address: [address] [place] [address] Result Comment: <100 mg/dL, Optimal 100-129 mg/dL, Near optimal/above optimal 130-159 mg/dL, Borderline high 160-189 mg/dL, High >189 mg/dL, Very high Secondary prevention optimal LDL Cholesterol levels are recommended to be < 70 mg/dL Performed By: #### 3 024-7, 3016-3, 70378-2, 98287-3 #### [facility] CLIA [id number] [address] [place] [address] [place] Cholesterol in LDL/Cholesterol in HDL [Mass ratio] 1.46 {ratio} Normal <2.54 [facility] Comment on above: Order Comment: Dylan montiel Type: BLOOD SPECIMEN Ordering Facility: [facility] Address: [address] [place] [address] Result Comment: Rojelio clemons: 1. National Cholesterol Education Program ATP III Guideline At-A-Glance Quick Desk Reference: National Heart, Lung, and Blood [place]. National Institutes of Health. 2001: NIH Publication No. 01-3305. 2. An International Atherosclerosis Society position paper: global recommendations for the management of dyslipidemia: executive summary, Atherosclerosis. 2014: 232(2):410-413. Performed By: #### 3 024-7, 3016-3, 98763-5, 53308-6 #### [facility] CLIA [id number] [address] [place] [address] [place] Cholesterol in VLDL [Mass/Vol] 8 mg/dL Normal <30 [facility] Comment on above: Order Comment: Dylan montiel Type: BLOOD SPECIMEN Ordering Facility: [facility] Address: [address] [place] [address] Performed By: #### 3 024-7, 3016-3, 56109-9, 73909-2 #### [facility] CLIA [id number] [address] [place] [address] [place] Cholesterol non HDL [Mass/Vol] 119 mg/dL Normal <130 [facility] Comment on above: Order Comment: Dylan montiel Type: BLOOD SPECIMEN Ordering Facility: [facility] Address: [address] [place] [address] Result Comment: <130 mg/dL, Optimal 130-159 mg/dL, Near optimal/above optimal 160-189 mg/dL, Borderline high 190-219 mg/dL, High >219 mg/dL, Very high Secondary prevention optimal non HDL Cholesterol levels are recommended to be <100 mg/dL Performed By: #### 3 024-7, 3016-3, 29861-8, 80392-0 #### [facility] CLIA [id number] [address] [place] [address] [place] Cholesterol.total/C holesterol in HDL [Mass ratio] 2.57 {ratio} Normal <5.10 [facility] Comment on above: Order Comment: Speci men Type: BLOOD SPECIMEN Ordering Facility: [facility] Address: [address] [place] [address] Performed By: #### 3 024-7, 3016-3, 81928-5, 86335-2 #### [facility] CLIA [id number] [address] [place] [address] [place] FASTING TIME 12 hrs Normal [facility] Comment on above: Order Comment: Speci men Type: BLOOD SPECIMEN Ordering Facility: [facility] Address: [address] [place] [address] Performed By: #### 3 024-7, 3016-3, 00314-1, 57669-3 #### [facility] CLIA [id number] [address] [place] [address] [place] Triglyceride [Mass/Vol] 42 mg/dL Normal <150 [facility] Comment on above: Order Comment: Speci men Type: BLOOD SPECIMEN Ordering Facility: [facility] Address: [address] [place] [address] Result Comment: <150 mg/dL, Normal 150-199 mg/dL, Borderline high 200-499 mg/dL, High >499 mg/dL, Very high Performed By: #### 3 024-7, 3016-3, 55535-6, 21071-7 #### [facility] CLIA [id number] [address] [place] [address] [place] T4 Free SerPl-mCncon 025 Free T4 [Mass/Vol] 1.1 ng/dL Normal 0.9-1.7 [facility] Comment on above: Order Comment: Speci men Type: BLOOD SPECIMEN Ordering Facility: [facility] Address: [address] [place] [address] Performed By: #### 3 024-7, 3016-3, 01798-7, 87872-4 #### [facility] CLIA [id number] [address] [place] [address] [place] TSH SerPl-aCncon 08-04-2024 TSH Qn 1.930 m[IU]/L Normal 0.270-4.200 [facility] Comment on above: Order Comment: Speci men Type: BLOOD SPECIMEN Ordering Facility: [facility] Address: [address] [place] [address] Performed By: #### 3 024-7, 3016-3, 20683-8, 02978-9 #### [facility] CLIA [id number] [address] [place] [address] [place] CNOVon 07-21-2024 CNOV Office Visit (INTMBE ) TOMÁS CHI ([id number]) 1970 F Date Time Provider Department 07/21/24 3:20 PM TALAT HOWELL During your visit today, we recorded the following information about you: Temperature Pulse Respiration Blood pressure 97.9 degrees 77/minute 16/minute 117/82 Weight Height 55.5 kg 1.593 m Talat Howell APRN.[employer] REPA[employer]MAN 07/21/2024 4:39 PM Signed Tomás Carter Kelley is a 54 year old female who presents today for her Annual Physical Exam. Medical conditions/complaints as noted below. HPI -Patient is here to establish care in the office today -Previous PCP; Dr. Beba Sidhu -Specialists: [facility]- seeing Mikala Arboleda [facility], [place] Colonoscopy- last completed [address] Ryan at [facility]. Follow up in 10 years per patient Health Maintenance: Diet: Incorporating vegetables,fruits, lean proteins. Drinking lots of water Exercise: Walking on treadmill 3-4 times a week Dental: Seeing regularly Vision: Dry eyes, no other vision issues Immunizations: Has had influenza vaccine Mammogram and pap smear are up to date through [facility]. She has signed ROR form Palpations -She is taking atenolol 25 mg as needed -She takes it when she notices fluttering in the chest -She was on it years ago, stopped the medication for a while then palpations restarted so she restarted her medication -She is tolerating well, the medication works when she does take it -She had an EKG and holter monitor recently and was given very vague results. She has signed a ROR form -Denies any chest pain, shortness of breath, leg swelling, dizziness Patient Care Team: Summer Marina DO as PCP - General (Internal Medicine) PAST MEDICAL HISTORY Diagnosis Date Irritable bowel syndrome 08/11/2006 Palpitations 11/19/2006 PMH - PAST MEDICAL HISTORY OF 03/2006 irregular heart beat, on Atenolol for this Vertigo, benign positional June 2014 PAST SURGICAL HISTORY Procedure Laterality Date BX BREAST W/DEVICE 1ST [facility] STEREOTACTIC GUID Left 01/05/2016 DELIVERY ONLY 02-25-2000 , low cervical LASIK Bilateral 2006 PAST SURGICAL HISTORY OF WISDOM TEETH EXTRACTION FAMILY HISTORY Problem Relation Age of Onset Heart Father MO- IN 30'S Stroke Maternal Grandmother Diabetes Maternal Grandmother Hypertension Maternal Aunt Cancer Maternal Uncle Lung Social History Tobacco Use Smoking status: Never Smokeless tobacco: Never Vaping Use Vaping status: Never Used Substance Use Topics Alcohol use: Yes Alcohol/week: 2.0 standard drinks of alcohol Types: 2 Standard drinks or equivalent per week Comment: Socially Drug use: No Current Outpatient Medications Medication Sig atenolol (TENORMIN) 25 mg tablet Take 1 tablet by mouth as needed. No current facility-administered medications for this visit. ALLERGIES No Known Allergies Hepatitis C Screening Never done HIV Screening Never done Hepatitis B Vaccine(1 of 3 - 19+ 3-dose series) Never done Colorectal Cancer Screening Never done Mammogram Screening due on 12/18/2017 Diabetes Screening due on 09/10/2018 Lipid Screening due on 09/10/2020 Pneumococcal Vaccine: 50+(1 of 1 - PCV) Never done Cervical Cancer Screening due on 12/18/2021 DTaP,Tdap,Td Vaccine(2 - Td or Tdap) due on 04/30/2022 Covid-19 Vaccine(1 - season) Never done Shingrix Vaccine(2 of 2) due on 04/12/2024 Depression Screening due on 07/21/2025 Anxiety Screening due on 07/21/2025 Influenza Vaccine Completed Subjective: Review of Systems Constitutional: Positive for fatigue. Negative for chills and fever. HENT: Negative for congestion, ear pain, postnasal drip, rhinorrhea, sinus pressure, sore throat and trouble swallowing. Eyes: Negative for visual disturbance. Respiratory: Negative for cough and shortness of breath. Cardiovascular: Positive for palpitations (intermittent). Negative for chest pain. Gastrointestinal: Negative for abdominal pain, nausea and vomiting. Genitourinary: Negative for dysuria, frequency and urgency. Musculoskeletal: Negative for myalgias. Skin: Negative for rash. Neurological: Negative for dizziness and headaches. Psychiatric/Behavioral : Negative for dysphoric mood and sleep disturbance. The patient is not nervous/anxious. Objective: BP 117/82 (BP Site: Left Arm, BP Position: Sitting, BP Cuff Size: Large Adult) Pulse 77 Temp 36.6 ?C (97.9 ?F) (Temporal) Resp 16 Ht 159.3 cm (5' 2.7) Wt 55.5 kg (122 lb 6.4 oz) LMP 03/10/2007 SpO2 98% BMI 21.89 kg/m? Last 3 Encounter BP Readings: Date: BP: 07/21/2024 117/82 09/04/2021 116/72 09/11/2017 108/80 Last 2 Encounter Wt Readings: Date: Wt: 07/21/2024 55.5 kg (122 lb 6.4 oz) 09/04/2021 57.2 kg (126 lb) Physical Exam Assessment: 1. Encounter to establish care Welcome to practice 2. (more content not included)... Normal [facility] Burglar Alarm Installer Office Visit Reporton 02-09-2024 Burglar Alarm Installer Office Visit Report [facility] 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 Is patient in pain?: No Allergies No Known Allergies Allergy (Verified 02/09/24 08:46) Medications ???Medication ???Instructions ???Recorded ???Confirmed ???Type atenolol 25 mg tablet 25 mg PO DAILY PRN 02/09/24 02/09/24 History Post menopausal: No Patient : No : No PFSH Medical History Irregular heart beat Non-smoker Benign positional vertigo Surgical History History of Family History Father Myocardial infarction Social History adopted: No current occupational status: employed current occupation: [employer] current occupational exposures/hazards: No Smoking Status: Never smoker second hand exposure: No alcohol intake: current alcohol intake frequency: holidays/special occasions only substance use type: does not use what type of physical activity do you participate in: walking frequency: 3-4 times per week seatbelt use: always do you feel safe at home: Yes additional social history: Spouse-Anand History 1 Elective abortions Hx Para 1 Spontaneous abortions Hx # Term Pregnancies Ectopic pregnancies Hx # Pregnancies Multiple births # of living children HPI 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 No menses >1 yr. No other symptoms. Last PAP: 2022 History of abnormal PAP: no Last mammogram: today pending History of abnormal mammogram: benign bx Colon cancer screenin Other preventative health care screenings: Jennifer Female Reproductive History Questions: metorrhagia: No, sexually active: Yes, dyspareunia: No and PCB: No ROS Const Constitutional: Denies fatigue, weight gain or weight loss Cardio Card: Denies chest pain Resp Resp: Denies cough or dyspnea on exertion GI GI: Denies abdominal pain, bloating, change in stool character, constipation or vomiting : Reports as per HPI; Denies difficulty voiding, pelvic pain, urinary frequency, urinary incontinence, urinary urgency, vaginal discharge or vaginal pruritus Exam Const General: cooperative, healthy appearing, no acute distress and well developed Orientation: alert, oriented to person and oriented to place HENMT Head: normal to inspection Neck Neck: normal visual inspection Thyroid: thyroid normal Lymphatic: no lymphadenopathy noted Chest Breast inspection: normal inspection of the breasts and normal inspection of the axillae Breast palpation: normal palpation of the breasts, normal palpation of the axillae and no axillary lymphadenopathy Resp Effort Inspection: normal respiratory effort GI Palpation: soft, no masses and nontender Rectal Exam: deferred External Female Exam: normal external appearance and normal appearance of the urethra Urethra: normal appearance of the urethra and normal palpation Speculum Exam - Vagina: normal appearance of the vagina and normal vaginal discharge Speculum Exam - Cervix: normal appearance of the cervix Bimanual Exam- Vagina Uterus: normal bimanual exam, uterine size normal, uterine shape normal and non-tender Bimanual Exam- Adnexa, other: normal adnexae, no masses, normal and non-tender Pelvic Support: normal Neuro General: patient alert and patient oriented x3 Psych Affect: normal affect Coding Level of Care Code Off vis,est,prev 40-64yrs Diagnoses Encounter for gynecological examination without abnormal finding Z01.419 Gynecological examination findings: abnormal findings ABSENT Assessment and Plan Assessment and Plan (1) Encounter for routine gynecological examination: Qualifiers: Gynecological examination findings: abnormal findings ABSENT Qualified Code(s): Z01.419 - Encounter for gynecological examination (general) (routine) without abnormal findings Plan Completed breast and pelvic exam Reviewed diet and exercise Pap 2022 Mammogram today pending breast self exam encouraged monthly Colonoscopy 2021 RTO 1 year, prn with problems Mikala Arboleda CAMERA REPAIRMAN Plan Details Goals Barriers: (more content not included)... Normal [facility] SCRN MAMM (CAD)W/IVONNE BILATo n 02-09-2024 SCRN MAMM (CAD)W/IVONNE BILAT [facility] Imaging Services [address] [place] [place] [address] SCRN MAMM (CAD)W/IVONNE BILAT MR#: [id number] Acct: [id number] Name: TOMÁS CHI CADY Rep #: [id number] : 1970 53 From: Baldev vazquez MD PCP: Dr. Beba Sidhu MD Status: [facility] Study: SCRN MAMM (CAD)W/IVONNE BILAT Date of Exam: 01/27 09/19 Exam# [id number] Ordering Dr: Mikala Arboleda HAM CURER HAM CURER -C [id number] MAMMOGRAPHY - BILATERAL SCREENING REASON FOR EXAM: Female, 53 years old. Routine annual screening examination. PERTINENT HISTORY: Non-contributory. History of prior left stereotactic breast biopsy. TECHNIQUE: Digital bilateral breast ivonne (3D mammographic acquisition) in the CC and MLO projections. 2-D mediolateral oblique (MLO) and craniocaudad (CC) views of both breasts were obtained. CAD: Full Field Digital Mammography with Computer Added Detection was performed. COMPARISON: Comparison is made with prior study dated February 03, 2023 and January 29, 2022. FINDINGS: Breast Composition: The breasts are extremely dense, which lowers the sensitivity of mammography. There are no dominant masses or suspicious calcifications. A tissue clip marker is seen in the deep slightly inferior central portion of the left breast. No other significant abnormalities are identified. There has been no significant change since the prior study. BI/SCRN MAMM (CAD)W/IVONNE BILAT IMPRESSION: Stable bilateral screening mammogram. Yearly follow-up mammogram recommended. (A) ASSESSMENT CATEGORY: BIRADS Category 2: Benign. A letter regarding these results will be sent to the patient by the facility within 30 days. Approximately 10% of breast cancers are not detected by mammography. A normal mammogram should not delay biopsy of a clinically suspicious abnormality. [id number] Electronically Signed: Baldev Bianchi MD at 9:06 EDT , CC: SIMRAN Arboleda; Dr. Beba Sidhu MD Rod Buster: Signed Normal [facility] Laboratory - Chemistry and C hemistry - challengeon 12-06-2021 HCG ( test) Ql (U) Negative [facility] Work Phone: Comment on above: Very dilute urine sp ecimens, as indicated by a low specificgravity, may not contain registered representative levels of hCG. If is still suspected, a first morning urinespecimen should be collected 48 hours later and tested. Vital Signs Date Time Vital Sign Value Performing Clinician Roque gallardo 07-21-2024 15:17-0500 Body height 159.3 cm Talat Howell APRN.MARCELA Work Phone: [facility] 07-21-2024 15:17-0500 Body mass index (BMI) [Ratio] 21.89 kg/m2 Talat Howell APRN.CNP Work Phone: [facility] 07-21-2024 15:17-0500 Body temperature 97.9 [degF] Talat Howell APRN.CNP Work Phone: [facility] 07-21-2024 15:17-0500 Body weight 55.52 kg Talat Howell CLINICAL REHABILITATION LIAISON.CAMERA REPAIRMAN Work Phone: [facility] 07-21-2024 15:17-0500 Diastolic blood pressure 82 mm[Hg] Talat Howell CLINICAL REHABILITATION LIAISON.CAMERA REPAIRMAN Work Phone: [facility] 07-21-2024 15:17-0500 Heart rate 77 /min Talat Abarcaer CLINICAL REHABILITATION LIAISON.CAMERA REPAIRMAN Work Phone: [facility] 07-21-2024 15:17-0500 Respiratory rate 16 /min Talat Abarcaer CLINICAL REHABILITATION LIAISON.CAMERA REPAIRMAN Work Phone: [facility] 07-21-2024 15:17-0500 SaO2% (BldA) [Mass fraction] 98 % Talat Abarcaer CLINICAL REHABILITATION LIAISON.CAMERA REPAIRMAN Work Phone: [facility] 07-21-2024 15:17-0500 Systolic blood pressure 117 mm[Hg] Talat Abarcaer CLINICAL REHABILITATION LIAISON.CAMERA REPAIRMAN Work Phone: [facility] 01-29-2022 08:41-0400 Body height 162.[address] Beba Sidhu Work Phone: [facility] Work Phone: 01-29-2022 08:41-0400 Body mass index (BMI) [Ratio] 20.7 kg/m2 Dr. Beba Sidhu Work Phone: [facility] Work Phone: 01-29-2022 08:41-0400 Body weight 54.[address] Beba Sidhu Work Phone: [facility] Work Phone: 01-29-2022 08:41-0400 Diastolic blood pressure 66 mm[Hg] Dr. Beba Sidhu Work Phone: [facility] Work Phone: 01-29-2022 08:41-0400 Systolic blood pressure 100 mm[Hg] Dr. Beba Sidhu Work Phone: [facility] Work Phone: 12-06-2021 07:35-0400 Body temperature 97.9 [degF] Dr. Beba Sidhu Work Phone: [facility] Work Phone: 12-06-2021 07:35-0400 Diastolic blood pressure 70 mm[Hg] Dr. Beba Sidhu Work Phone: [facility] Work Phone: 12-06-2021 07:35-0400 Heart rate 80 /min Dr. Beba Sidhu Work Phone: [facility] Work Phone: 12-06-2021 07:35-0400 Respiratory rate 16 /min Dr. Beba Sidhu Work Phone: [facility] Work Phone: 12-06-2021 07:35-0400 SaO2% (BldA) [Mass fraction] 100 % Dr. Beba Sidhu Work Phone: [facility] Work Phone: 12-06-2021 07:35-0400 Systolic blood pressure 103 mm[Hg] Dr. Beba Sidhu Work Phone: [facility] Work Phone: 12-06-2021 06:30-0400 Body height 162.[address] Beba Sidhu Work Phone: [facility] Work Phone: 12-06-2021 06:30-0400 Body mass index (BMI) [Ratio] 21.4 kg/m2 Dr. Beba Sidhu Work Phone: [facility] Work Phone: 12-06-2021 06:30-0400 Body weight 56.[address] Beba Sidhu Work Phone: [facility] Work Phone: 10-14-2021 15:49-0400 Body mass index (BMI) [Ratio] 22.1 kg/m2 Dr. Beba Sidhu Work Phone: [facility] Work Phone: 10-14-2021 15:49-0400 Body weight 56.[address] Bbea Sidhu Work Phone: [facility] Work Phone: Encounters Encounter Date Encounter Type Care Provider Facility Start: 02-09-2025 ambulatory [facility] Facility: [facility] Start: 09-16-2024 End: 09-16-2024 Telephone encounter Summer Joselo Marina DO Work Phone: [facility] [place] Comment on above: Patient Update ([facility] Records) Start: 09-09-2024 End: 09-16-2024 Follow-up encounter Talat Howell APRN.CAMERA REPAIRMAN Work Phone: [facility] [place] Start: 09-08-2024 End: 09-08-2024 ambulatory TALAT HOWELL Facility:[facility] Start: 08-16-2024 End: 09-16-2024 ambulatory Summer Nallen Laina DO Work Phone: [facility] [place] Start: 08-05-2024 End: 08-05-2024 ambulatory Talat Howell APRN.CAMERA REPAIRMAN Work Phone: [facility] [place] Comment on above: Results Start: 08-05-2024 End: 08-05-2024 E-mail encounter from caregiver Talat Lizzie Mairano MENDOSACAMERA REPAIRMAN Work Phone: [facility] [place] Start: 08-04-2024 End: 08-04-2024 ambulatory TALAT HOWELL Facility:[facility] Start: 07-21-2024 End: 07-21-2024 ambulatory TALAT HOWELL Facility:[facility] Start: 07-21-2024 End: 07-21-2024 Assay of hemosiderin, quant Talat Howell APRN.CAMERA REPAIRMAN Work Phone: [facility] Start: 07-21-2024 End: 07-21-2024 Initial preventive medicine new patient 40-64yrs Talat Howell APRN.CAMERA REPAIRMAN Work Phone: [facility] [place] Comment on above: Encounter to [facility] (Primary Dx); Routine general medical examination at health care facility; Palpitations; Other fatigue; Vitamin D deficiency; Encounter for screening examination for other mental health and behavioral disorders; Screening for depression; Encounter for screening for diabetes mellitus; Screening for lipid disorders; Screening for cardiovascular condition Start: 02-09-2024 End: 02-09-2024 ambulatory [facility] [place]: 02-09-2024 End: 02-09-2024 ambulatory [facility] Facility:[facility] Start: 09-04-2022 End: 09-04-2022 ambulatory [facility] Work Phone: Start: 09-04-2022 End: 09-04-2022 Patient encounter procedure [facility]-Pulmonary Services/Neurology Start: 01-29-2022 End: 01-29-[address] Beba Sidhu Work Phone: [facility] Start: 12-06-2021 Non-patient / Non-visit Dr. Byron Sidhu Work Phone: [facility] Start: 12-06-2021 End: 12-06-2021 Admission to same day surgery center Dr. Beba Sidhu Work Phone: [facility]-Endoscopy Start: 10-14-2021 Non-patient / Non-visit Dr. Byron Sidhu Work Phone: [facility] Start: 05-15-2010 End: 01-07-2012 Patient encounter status Talat Howell APRN.CNP Work Phone: [facility] Procedures Date Procedure Procedure Detail Performing Clinician Start: 08-04-2024 Lipid 1996 panel - S benny or Plasma Talat Howell APRN.CNP Work Phone: Start: 07-21-2024 Adult depression scr eening assessment Talat Howell APRN.CNP Work Phone: Start: 01-29-2022 Screening mammography Amy Sidhu Work Phone: Start: 12-06-[address] Beba Sidhu Work Phone: Start: 09-11-2015 Lipid 1996 panel - S benny or Plasma Talat Howell APRN.CNP Work Phone: Plan of Treatment Date Care Activity Detail Author Start: 08-04-2029 Lipid panel Lipid Screening [facility] Start: 08-04-2027 Diabetes Screening Diabetes Screenin g [facility] Start: 07-21-2025 End: 07-21-2025 Patient encounter procedure 07/21/2025 3:00 PM EST Office Visit [facility] [place] [address] [facility] [place] [place] [address] Talat Howell APRN.CAMERA REPAIRMAN [address] [place] [id number] Yearly [facility] [place] Comment on above: Yearly Start: 07-21-2025 Anxiety Screening Anxiety Screening [facility] Start: 07-21-2025 Depression Screening Depression Scre ening [facility] Start: 09-01-2024 End: 09-01-2024 ambulatory 09/01/2024 8:00 AM EST Results Only [facility] [address] [place] [address] [facility] Start: 08-26-2024 End: 11-25-2024 CBC W Auto Differential panel - Blood COMPLETE BLOOD COUNT AND DIFFERENTIAL Lab Routine Leukopenia, unspecified type Expected: 08/26/2024 (Approximate), Expires: 11/25/2024 [facility] Work Phone: Comment on above: Expected: 08/26/2024 (Approximate), Expires: 11/25/2024 Start: 07-21-2024 End: 10-20-2024 25-hydroxyvitamin D3 [Mass/volume] in Serum or Plasma VITAMIN D 25 HYDROXY Lab Routine Vitamin D deficiency Expected: 07/21/2024, Expires: 10/20/2024 [facility] Comment on above: Expected: 07/21/2024 , Expires: 10/20/2024 Start: 07-21-2024 End: 10-20-2024 CBC W Auto Differential panel - Blood COMPLETE BLOOD COUNT AND DIFFERENTIAL Lab Routine Screening for cardiovascular condition Expected: 07/21/2024, Expires: 10/20/2024 [facility] Work Phone: Comment on above: Expected: 07/21/2024 , Expires: 10/20/2024 Start: 07-21-2024 End: 10-20-2024 Comprehensive metabolic 2000 panel - Serum or Plasma COMPREHENSIVE METABOLIC PANEL Lab Routine Screening for cardiovascular condition Expected: 07/21/2024, Expires: 10/20/2024 [facility] Comment on above: Expected: 07/21/2024 , Expires: 10/20/2024 Start: 07-21-2024 End: 10-20-2024 Hemoglobin A1c in Blood HEMOGLOBIN A1C Lab Routine Encounter for screening for diabetes mellitus Expected: 07/21/2024, Expires: 10/20/2024 [facility] Comment on above: Expected: 07/21/2024 , Expires: 10/20/2024 Start: 07-21-2024 End: 10-20-2024 Lipid 1996 panel - Serum or Plasma LIPID PANEL BASIC Lab Routine Screening for lipid disorders Expected: 07/21/2024, Expires: 10/20/2024 [facility] Comment on above: Expected: 07/21/2024 , Expires: 10/20/2024 Start: 07-21-2024 End: 10-20-2024 Thyrotropin [Units/volume] in Serum or Plasma THYROID STIMULATING HORMONE Lab Routine Other fatigue Expected: 07/21/2024, Expires: 10/20/2024 [facility] Comment on above: Expected: 07/21/2024 , Expires: 10/20/2024 Start: 07-21-2024 End: 10-20-2024 Thyroxine (T4) free [Mass/volume] in Serum or Plasma T4 FREE/FREE THYROXINE Lab Routine Other fatigue Expected: 07/21/2024, Expires: 10/20/2024 [facility] Comment on above: Expected: 07/21/2024 , Expires: 10/20/2024 Start: 04-12-2024 Shingrix Vaccine (2 of 2) Shingrix Vaccine (2 of 2) [facility] Start: 02-28-2024 Covid-19 Vaccine () Covid-19 Vaccine () [facility] Start: 04-30-2022 Urine microalbumin profile DTaP,Tdap,Td Vaccine (2 - Td or Tdap) [facility] Start: 12-18-2021 Screening for malign ant neoplasm of cervix Cervical Cancer Screening [facility] Start: 12-06-2021 Colonoscopy flx dx w/collj spec when pfrmd DIAGNOSTIC COLONOSCOPY [facility] Work Phone: Start: 12-06-2021 Patient discharge [facility] Work Phone: Start: 2021 Pneumococcal Vaccine : 50+ (1 of 1 - PCV) Pneumococcal Vaccine: 50+ (1 of 1 - PCV) [facility] Start: 09-10-2020 Lipid panel Lipid Screening [facility] Start: 09-10-2018 Diabetes Screening Diabetes Screenin g [facility] Start: 12-18-2017 Screening for malign ant neoplasm of breast Mammogram Screening [facility] Start: 2016 Screening for malign ant neoplasm of colon [facility] Start: 1990 Hepatitis B Vaccine (1 of 3 - 19+ 3-dose series) Hepatitis B Vaccine (1 of 3 - 19+ 3-dose series) [facility] Start: 1989 Hepatitis C screening Hepatitis C Sc jaclyn [facility] Start: 1989 HIV screening HIV Screening [facility] End: 09-15-2025 DBT Breast - bilateral screening BERONICA SCREENING W IVONNE Radiology Routine Encounter for screening mammogram for breast cancer 1 Occurrences starting 08/16/2024 until 09/15/2025 [facility] Work Phone: Comment on above: 1 Occurrences starti ng 08/16/2024 until 09/15/2025 Patient referral [facility] Work Phone: Immunizations Immunization Date Immunization Notes Care Provider Triny sofyayessy 05-02-2024 influenza, seasonal, injectable, preservative free Talat Howell CLINICAL REHABILITATION LIAISON.CAMERA REPAIRMAN Work Phone: [facility] 02-16-2024 zoster vaccine recombinant Talat Howell CLINICAL REHABILITATION LIAISON.CAMERA REPAIRMAN Work Phone: [facility] 04-30-2012 influenza virus vacc ine, unspecified formulation Talat Howell CLINICAL REHABILITATION LIAISON.CAMERA REPAIRMAN Work Phone: [facility] 04-30-2012 tetanus toxoid, redu franklin diphtheria toxoid, and acellular pertussis vaccine, adsorbed Talat Howell CLINICAL REHABILITATION LIAISON.CAMERA REPAIRMAN Work Phone: [facility] 04-21-2006 influenza virus vacc ine, unspecified formulation Talat Howell CLINICAL REHABILITATION LIAISON.CAMERA REPAIRMAN Work Phone: [facility] Payers Date Payer Category Payer Self-pay [id number] 2023 Private Health Insurance [id number] 2023 Private Health Insurance [id number] Health Insurance [id number] Unknown [id number] Unknown [id number] Unknown [id number] Social History Date Type Detail Facility [facility] Work Phone: Start: 12-03-2021 End: 01-29-2022 Tobacco smoking status NHIS Unknown if ever smoked [facility] Start: 1970 Sex Assigned At Female [facility] Start: 11-26-2010 Tobacco smoking stat us NHIS Never smoked tobacco [facility] Work Phone: Start: 11-26-2010 Tobacco use and exposure Smokeless tobacco non-user [facility] Start: 07-21-2024 Alcoholic beverage intake Current drinker of alcohol (finding) [facility] Start: 07-19-2024 End: 07-21-2024 Alcoholic beverage intake [facility] Start: 07-19-2024 End: 07-21-2024 [facility] [employer] [facility] Has the [email or web address], oil, or water [employer] threatened to shut off services in your home in past 12Mo No [facility] Are you now , , , , never or living with a partner? [facility] How often to you hav e a drink containing alcohol? 2-3 time sa week [facility] How many standard drinks containing alcohol do you have on a typical day? 1 or 2 [facility] How often do you hav e 6 or more drinks on 1 occasion? Never [facility] How hard is it for y ou to pay for the very basics like food, housing, medical care, and heating Not hard at all [facility] Do you feel stress - tense, restless, nervous, or anxious, or unable to sleep at night because your mind is troubled all the time - these days [OSQ] Not at all [facility] (I/We) worried wheth er (my/our) food would run out before (I/we) got money to buy more. Never true [facility] Start: 1970 Sex assigned at Not on file C [facility] Start: 08-01-2024 Gender identity Identifies as female gender (finding) [facility] Start: 08-01-2024 Sexual orientation Heterosexual (milo fajardo) [facility] Goals Date Patient Goal Desired Activity /State Functional Status Date Assessment Result Facility 12-11-2014 Are you deaf, or do you have serious difficulty hearing No 12/11/2014 8:31 AM Rita Gonzáles MA No [facility] 12-11-2014 Are you blind, or do you have serious difficulty seeing, even when wearing glasses No 12/11/2014 8:31 AM EDT Rita Tripathi MA No [facility] 12-11-2014 Do you have serious difficulty walking or climbing stairs No 12/11/2014 8:31 AM EDT Rita Tripathi MA No [facility] 12-11-2014 Do you have difficul ty dressing or bathing No 12/11/2014 8:31 AM EDT Rita Tripathi MA No [facility] 12-11-2014 Because of a physica l, mental, or emotional condition, do you have difficulty doing errands alone such as visiting a physician's office or shopping No 12/11/2014 8:31 AM EDT Rita Tripathi MA No [facility] Mental Status Date Assessment Result Facility 12-06-2021 Cognitive function Voice/Name [facility] Work Phone: 12-11-2014 Because of a physica l, mental, or emotional condition, do you have serious difficulty concentrating, remembering, or making decisions No 12/11/2014 8:31 AM EDT Rita Tripathi MA No [facility] Clinical Notes 07-21-2024 to 09-16-2024 Telephone Encounter - Reinaldo Pinto MA - 09/16/2024 12:49 PM EDTTelephone Encounter - Reinaldo Pinto MA - 09/16/2024 12:49 PM EDTPatient Instructions Note Date & Type Note Facility 09-16-2024 Telephone encount er Note A fax was sent and received to Dr. Sidhu requesting medical records. Reinaldo Pinto MA [facility] 09-16-2024 Miscellaneous Notes Formattin g of this note might be different from the original. A fax was sent and received to Dr. Sidhu requesting medical records. Reinaldo Pinto MA documented in this encounter [facility] 08-16-2024 Note Patient Outreach (IN TMBE) CARTER CARRSPRINGTOMÁS ([id number]) 1970 F Date Time Provider Department 08/16/24 [facility] During your visit today, we recorded the following information about you: Allergies As of Date: 08/16/2024 (No Known Allergies) Date Reviewed: 07/21/2024 Reviewed by: Talat Howell APRN.CNP - Fully Assessed Visit Diagnosis:Encounter for screening mammogram for breast cancer [Z12.31] Order(s):BERONICA SCREENING W IVONNE [[id number]] Order #: [id number] FUTURE Prescriptions as of 09/16/2024 - atenolol (TENORMIN) 25 mg tablet Take 1 tablet by mouth as needed. 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 Limit fast foods, processed foods, junk foods, added sugars and salts. Adults should have 30 minutes of moderate intensity activity per day. -Please have fasting labs completed at your convenience documented in this encounter [facility] 07-21-2024 Note HNO ID: [id number] Author: TALAT HOWELL APRN.CNP Service: ? Author Type: Nurse Practitioner Type: Progress Notes Filed: 07/21/2024 16:39 Note Text: Tomás Kelley is a 54 year old female who presents today for her Annual Physical Exam. Medical conditions/complaints as noted below. HPI -Patient is here to establish care in the office today -Previous PCP; Dr. Beba Sidhu -Specialists: SERVICING REP- seeing Mikala Arboleda CNP, [place] Colonoscopy- last completed [address] Ryan at [facility]. Follow up in 10 years per patient Health Maintenance: Diet: Incorporating vegetables,fruits, lean proteins. Drinking lots of water Exercise: Walking on treadmill 3-4 times a week Dental: Seeing regularly Vision: Dry eyes, no other vision issues Immunizations: Has had influenza vaccine Mammogram and pap smear are up to date through SERVICING REP. She has signed ROR form Palpations -She is taking atenolol 25 mg as needed -She takes it when she notices fluttering in the chest -She was on it years ago, stopped the medication for a while then palpations restarted so she restarted her medication -She is tolerating well, the medication works when she does take it -She had an EKG and holter monitor recently and was given very vague results. She has signed a ROR form -Denies any chest pain, shortness of breath, leg swelling, dizziness Patient Care Team: Summer Marina DO as PCP - General (Internal Medicine) PAST MEDICAL HISTORY Diagnosis Date Irritable bowel syndrome 08/11/2006 Palpitations 11/19/2006 PMH - PAST MEDICAL HISTORY OF 03/2006 irregular heart beat, on Atenolol for this Vertigo, benign positional June 2014 PAST SURGICAL HISTORY Procedure Laterality Date BX BREAST W/DEVICE 1ST LESION STEREOTACTIC GUID Left 01/05/2016 DELIVERY ONLY 02-25-2000 , low cervical LASIK Bilateral 2006 PAST SURGICAL HISTORY OF WISDOM TEETH EXTRACTION FAMILY HISTORY Problem Relation Age of Onset Heart Father MO- IN ' Stroke Maternal Grandmother Diabetes Maternal Grandmother Hypertension Maternal Aunt Cancer Maternal Uncle Lung Social History Tobacco Use Smoking status: Never Smokeless tobacco: Never Vaping Use Vaping status: Never Used Substance Use Topics Alcohol use: Yes Alcohol/week: 2.0 standard drinks of alcohol Types: 2 Standard drinks or equivalent per week Comment: Socially Drug use: No Current Outpatient Medications Medication Sig atenolol (TENORMIN) 25 mg tablet Take 1 tablet by mouth as needed. No current facility-administered medications for this visit. ALLERGIES No Known Allergies Hepatitis C Screening Never done HIV Screening Never done Hepatitis B Vaccine(1 of 3 - 19+ 3-dose series) Never done Colorectal Cancer Screening Never done Mammogram Screening due on 12/18/2017 Diabetes Screening due on 09/10/2018 Lipid Screening due on 09/10/2020 Pneumococcal Vaccine: 50+(1 of 1 - PCV) Never done Cervical Cancer Screening due on 12/18/2021 DTaP,Tdap,Td Vaccine(2 - Td or Tdap) due on 04/30/2022 Covid-19 Vaccine(1 - ) Never done Shingrix Vaccine(2 of 2) due on 04/12/2024 Depression Screening due on 07/21/2025 Anxiety Screening due on 07/21/2025 Influenza Vaccine Completed Subjective: Review of Systems Constitutional: Positive for fatigue. Negative for chills and fever. HENT: Negative for congestion, ear pain, postnasal drip, rhinorrhea, sinus pressure, sore throat and trouble swallowing. Eyes: Negative for visual disturbance. Respiratory: Negative for cough and shortness of breath. Cardiovascular: Positive for palpitations (intermittent). Negative for chest pain. Gastrointestinal: Negative for abdominal pain, nausea and vomiting. Genitourinary: Negative for dysuria, frequency and urgency. Musculoskeletal: Negative for myalgias. Skin: Negative for rash. Neurological: Negative for dizziness and headaches. Psychiatric/Behavioral: Negative for dysphoric mood and sleep disturbance. The patient is not nervous/anxious. Objective: BP 117/82 (BP Site: Left Arm, BP Position: Sitting, BP Cuff Size: Large Adult) Pulse 77 Temp 36.6 ?C (97.9 ?F) (Temporal) Resp 16 Ht 159.3 cm (5' 2.7) Wt 55.5 kg (122 lb 6.4 oz) LMP 03/10/2007 SpO2 98% BMI 21.89 kg/m? Last 3 Encounter BP Readings: Date: BP: 07/21/2024 117/82 09/04/2021 116/72 09/11/2017 108/80 Last 2 Encounter Wt Readings: Date: Wt: 07/21/2024 55.5 kg (122 lb 6.4 oz) 09/04/2021 57.2 kg (126 lb) Physical Exam Assessment: 1. Encounter to establish care Welcome to practice 2. Routine general medical examination at health care facility Continue to work on healthy diet by incorporating more vegetables, fruits, lean proteins, whole grains, and water intake. Limit fast foods, processed foods, junk foods, added sugars and salts. Adults should have 30 minutes of moderate intensity ac (more content not included)... [facility] 07-21-2024 History of Presen t illness Narrative Tomás Kelley is a 54 year old female who presents today for her Annual Physical Exam. Medical conditions/complaints as noted below. HPI -Patient is here to establish care in the office today -Previous PCP; Dr. Beba Sidhu -Specialists: SERVICING REP- seeing Mikala Arboleda [facility], [place] Colonoscopy- last completed [address] Ryan at [facility]. Follow up in 10 years per patient Health Maintenance: Diet: Incorporating vegetables,fruits, lean proteins. Drinking lots of water Exercise: Walking on treadmill 3-4 times a week Dental: Seeing regularly Vision: Dry eyes, no other vision issues Immunizations: Has had influenza vaccine Mammogram and pap smear are up to date through SERVICING REP. She has signed ROR form Palpations -She is taking atenolol 25 mg as needed -She takes it when she notices fluttering in the chest -She was on it years ago, stopped the medication for a while then palpations restarted so she restarted her medication -She is tolerating well, the medication works when she does take it -She had an EKG and holter monitor recently and was given very vague results. She has signed a ROR form -Denies any chest pain, shortness of breath, leg swelling, dizziness Patient Care Team: Summer Marina DO as PCP - General (Internal Medicine) PAST MEDICAL HISTORY Diagnosis Date Irritable bowel syndrome 08/11/2006 Palpitations 11/19/2006 PMH - PAST MEDICAL HISTORY OF 03/2006 irregular heart beat, on Atenolol for this Vertigo, benign positional June 2014 PAST SURGICAL HISTORY Procedure Laterality Date BX BREAST W/DEVICE 1ST LESION STEREOTACTIC GUID Left 01/05/2016 DELIVERY ONLY 02-25-2000 , low cervical LASIK Bilateral 2006 PAST SURGICAL HISTORY OF WISDOM TEETH EXTRACTION FAMILY HISTORY Problem Relation Age of Onset Heart Father MO- IN 30'S Stroke Maternal Grandmother Diabetes Maternal Grandmother Hypertension Maternal Aunt Cancer Maternal Uncle Lung Social History Tobacco Use Smoking status: Never Smokeless tobacco: Never Vaping Use Vaping status: Never Used Substance Use Topics Alcohol use: Yes Alcohol/week: 2.0 standard drinks of alcohol Types: 2 Standard drinks or equivalent per week Comment: Socially Drug use: No Current Outpatient Medications Medication Sig atenolol (TENORMIN) 25 mg tablet Take 1 tablet by mouth as needed. No current facility-administered medications for this visit. ALLERGIES No Known Allergies Hepatitis C Screening Never done HIV Screening Never done Hepatitis B Vaccine(1 of 3 - 19+ 3-dose series) Never done Colorectal Cancer Screening Never done Mammogram Screening due on 12/18/2017 Diabetes Screening due on 09/10/2018 Lipid Screening due on 09/10/2020 Pneumococcal Vaccine: 50+(1 of 1 - PCV) Never done Cervical Cancer Screening due on 12/18/2021 DTaP,Tdap,Td Vaccine(2 - Td or Tdap) due on 04/30/2022 Covid-19 Vaccine( - 2023- season) Never done Shingrix Vaccine(2 of 2) due on 04/12/2024 Depression Screening due on 07/21/2025 Anxiety Screening due on 07/21/2025 Influenza Vaccine Completed Subjective: Review of Systems Constitutional: Positive for fatigue. Negative for chills and fever. HENT: Negative for congestion, ear pain, postnasal drip, rhinorrhea, sinus pressure, sore throat and trouble swallowing. Eyes: Negative for visual disturbance. Respiratory: Negative for cough and shortness of breath. Cardiovascular: Positive for palpitations (intermittent). Negative for chest pain. Gastrointestinal: Negative for abdominal pain, nausea and vomiting. Genitourinary: Negative for dysuria, frequency and urgency. Musculoskeletal: Negative for myalgias. Skin: Negative for rash. Neurological: Negative for dizziness and headaches. Psychiatric/Behavioral: Negative for dysphoric mood and sleep disturbance. The patient is not nervous/anxious. Objective: BP 117/82 (BP Site: Left Arm, BP Position: Sitting, BP Cuff Size: Large Adult) Pulse 77 Temp 36.6 C (97.9 F) (Temporal) Resp 16 Ht 159.3 cm (5' 2.7) Wt 55.5 kg (122 lb 6.4 oz) LMP 03/10/2007 SpO2 98% BMI 21.89 kg/m Last 3 Encounter BP Readings: Date: BP: 07/21/2024 117/82 09/04/2021 116/72 09/11/2017 108/80 Last 2 Encounter Wt Readings: Date: Wt: 07/21/2024 55.5 kg (122 lb 6.4 oz) 09/04/2021 57.2 kg (126 lb) Physical Exam Assessment: 1. Encounter to establish care Welcome to practice 2. Routine general medical examination at health care facility Continue to work on healthy diet by incorporating more vegetables, fruits, lean proteins, whole grains, and water intake. Limit fast foods, processed foods, junk foods, added sugars and salts. Adults should have 30 minutes of moderate intensity activity per day. 3. Palpitations Chronic, stable. Continue atenolol 25 mg as needed. 4. Other fatigue - THYROID STIMULATING HORMONE; Future - T4 FREE/FREE THYROXINE; Future Plan to update labs. Will contact patient with results 5. Vitamin D deficiency - VITAMIN D 25 HYDROXY; Future 6. Encounter for screening examination for other mental health and behavioral disorders - ANXIETY SCREENING 7. Screening for depression - DEPRESSION SCREENING 6,7 not at risk for anxiety or depression at this time patient will let the office know if symptoms change 8. Encounter for screening for diabetes mellitus - HEMOGLOBIN A1C; Future 9. Screening for lipid disorders - LIPID PANEL BASIC; Future 10. Screening for cardiovascular condition - COMPLETE BLOOD COUNT AND DIFFERENTIAL; Future - COMPREHENSIVE METABOLIC PANEL; Future Advised to call the office with any new or worsening symptoms. Patient states understanding of instructions and agrees with plan of care. Encouraged a healthy diet low in cholesterol and saturated fats Encouraged regular physical exercise Will notify of blood work results Follow up: Return in about 1 year (around 07/21/2025) for Annual exam . Talat Howell APRN.CAMERA REPAIRMAN 07/21/24 documented in this encounter [facility] Evaluation note Diagnosis Onset Date Encounter for screening for malignant neoplasm of colon acute [facility] Work Phone: Evaluation note* Diagnosis Onset Date Resolution Status Encounter for screening for malignant neoplasm of colon acute Encounter for routine gynecological examination noneactive [facility] Work Phone: Evaluation noteNo assessment information available [facility] Work Phone: Evaluation note* Diagnosis Encounter to establish care- Primary Other reasons for seeking consultation Routine general medical examination at health care facility Routine general medical examination at a health care facility Palpitations Other fatigue Vitamin D deficiency Unspecified vitamin D deficiency Encounter for screening examination for other mental health and behavioral disorders Screening for depression Encounter for screening for diabetes mellitus Screening for diabetes mellitus Screening for lipid disorders Screening for cardiovascular condition Screening for other and unspecified cardiovascular conditions [facility] Diagnosis Leukopenia, unspecified type- Primary [facility] Diagnosis Encounter for screening mammogram for breast cancer documented in this encounter [facility] Chief Complaint and Reason for Visit Chief Complaint Amb Documentation Amb Documentation COLONOSCOPY COLONOSCOPY Reason for Visit Encounter for screen ing for malignant neoplasm of colon Chief Complaint Amb Documentation Amb Documentation 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 Visit Encounter for screen ing for malignant neoplasm of colon Encounter for routine gynecological examination Chief Complaint PALPITATIONS Advance Directives No Advanced Directives Records Found Advance Directive Response Recorded Date/ Time Living Will No December 03, 2021 1 0:50am Power of Student Driving Instructor No December 03, 2021 10:50am Advance Directive Response Recorded Date/ Time Living Will No December 03, 2021 9 :50am Power of Student Driving Instructor No December 03, 2021 9:50am Summary Purpose Family History No Family History Records Found Additional Source Comments Care Teams (unrecognized sec tion and content) Team Status: Active Member Role Status Dates Dr. Beba Sidhu MD Family Provider Active Dr. Beba Sidhu MD Primary Care Provider Active Team Status: Inactive Member Role Status Dates Dr. Beba Sidhu MD Primary Care Prov ider, Attending Provider, Referring Provider Active Refrigeration Unit Repairer Relationship Specialty Start Date End Date Summer Marina DO [address] [place] [address] PCP - General Internal Medicine 07/21/24 Refrigeration Unit Repairer Relationship Specialty Start Date End Date Summer Marina DO [address] [place] [address] PCP - General Internal Medicine 07/21/24 Refrigeration Unit Repairer Relationship Specialty Start Date End Date Summer Marina DO [address] [place] [address] PCP - General Internal Medicine 07/21/24 Talat Howell, CLINICAL REHABILITATION LIAISON.CAMERA REPAIRMAN [address] [place] [address] Sweeper Cleaner Industrial Internal Medicine 09/08/24 Refrigeration Unit Repairer Relationship Specialty Start Date End Date Summer Marina DO [address] [place] [address] PCP - General Internal Medicine 07/21/24 Talat Howell, CLINICAL REHABILITATION LIAISON.CAMERA REPAIRMAN [address] [place] [address] Sweeper Cleaner Industrial Internal Medicine 09/08/24 Refrigeration Unit Repairer Relationship Specialty Start Date End Date Summer Marina DO [address] [place] [address] PCP - General Internal Medicine 07/21/24 Talat Howell, CLINICAL REHABILITATION LIAISON.CAMERA REPAIRMAN [address] [place] [address] Sweeper Cleaner Industrial Internal Medicine 09/08/24 Source Comments (unrecognize d section and content) In the event this informatio n is protected by the Federal Confidentiality of Alcohol and Drug Abuse Patient Records regulations: The Federal rules restrict any use of the information to criminally investigate or prosecute any alcohol or drug abuse patient.[facility] the event this information is protected by the Federal Confidentiality of Alcohol and Drug Abuse Patient Records regulations: The Federal rules restrict any use of the information to criminally investigate or prosecute any alcohol or drug abuse patient.[facility] the event this information is protected by the Federal Confidentiality of Alcohol and Drug Abuse Patient Records regulations: The Federal rules restrict any use of the information to criminally investigate or prosecute any alcohol or drug abuse patient.[facility] the event this information is protected by the Federal Confidentiality of Alcohol and Drug Abuse Patient Records regulations: The Federal rules restrict any use of the information to criminally investigate or prosecute any alcohol or drug abuse patient.[facility] the event this information is protected by the Federal Confidentiality of Alcohol and Drug Abuse Patient Records regulations: The Federal rules restrict any use of the information to criminally investigate or prosecute any alcohol or drug abuse patient.[facility] Reason for Visit (unrecogniz ed section and content) Reason Comments Establish Care Reason Comments Patient Update Medical Records INFORMATION SOURCE (unrecogn ized section and content) DATE CREATED AUTHOR 10/07/2024 [facility] DATE CREATED AUTHOR AUTHOR'S ORGANIZ ATION 02/03/2025 [facility] FOR RECORDS PERTAINING TO PATIENTS WHO ARE OR HAVE BEEN ENROLLED IN A CHEMICAL DEPENDENCY/SUBSTANCEABUSE PROGRAM, SOME INFORMATION MAY BE OMITTED. This clinical summary was aggregated from multiple sources. Caution should be exercised in using it in the provision of clinical care. This summary normalizes information from multiple sources, and as a consequence, information in this document may materially change the coding, format and clinical context of patient data. In addition, data may be omitted in some cases. CLINICAL DECISIONS SHOULD BE BASED ON THE PRIMARY CLINICAL RECORDS. [facility]. provides no warranty or guarantee of the accuracy or completeness of information in this document.
== END | disposition home or self-care (01) ==
PROVIDERS: PCP Internal Medicine; Referring Provider Nurse Practitioner Women's Health; Visit Provider Nurse Practitioner Women's Health
DX: Z12.31 Encounter for screening mammogram for malignant neoplasm of breast (principal)
CPT/HCPCS: 77063; 77067